=== PATIENT | female | born 1955 | race Caucasian/White ===

== ENCOUNTER → 2016-11-28 | Outpatient (CLI) | payer BC | LOC: BRMIMAGING 13:30 | PROVIDERS: ATTEND Internal Medicine Hematology & Oncology | DX: M25.511 Pain in right shoulder (principal); C50.919 Malignant neoplasm of unspecified site of unspecified female breast | CPT/HCPCS: 73030-PO ==

== ENCOUNTER → 2017-03-20 | Outpatient (CLI) | payer BC ==
[~2017-03-20] MED LIST: GADOBUTROL 10 ML VIAL IVP ONE
== END ==
LOC: FIMAGING 13:42
PROVIDERS: ATTEND Ophthalmology
DX: Z12.89 Encounter for screening for malignant neoplasm of other sites (principal); C44.122 Squamous cell carcinoma of skin of right eyelid, including canthus; D48.5 Neoplasm of uncertain behavior of skin; Z85.3 Personal history of malignant neoplasm of breast
CPT/HCPCS: A9585; J1642

== ENCOUNTER → 2017-04-10 | Outpatient (CLI) | payer BC ==
[~2017-04-10] MED LIST changes: -GADOBUTROL 10 ML VIAL IVP ONE; +LIDOCAINE 1% 300 MG/30 ML SDV ONE
[2017-04-17 14:32] LABS: FIXED IN 10%FORM 6-72HR Yes; FIXED IN 10%FORM W/IN 1 HR Yes
== END ==
LOC: FIMAGING 09:39
PROVIDERS: ATTEND Internal Medicine Hematology & Oncology
PROC: 0KB Muscles, Excision (ICD-10-PCS; principal; 2017-04-10)
DX: C76.0 Malignant neoplasm of head, face and neck (principal); Z85.3 Personal history of malignant neoplasm of breast

== ENCOUNTER 2017-04-23 09:37 | Day surgery (SDC) | payer BC ==
--- NOTE | 2017-04-23 10:26 | CPEKG ---
Heart Rate: 82 RR Interval: 732 P-R Interval: 156 QRSD Interval: 122 QT Interval: 412 QTC Interval: 482 P [place]: 61 QRS [place]: 24 T Wave [place]: 147 EKG Severity - ABNORMAL ECG - EKG Impression: SINUS RHYTHM EKG Impression: LEFT BUNDLE BRANCH BLOCK Electronically Signed By: Pasquale Campbell 23-Apr-2017 11:46:43
--- NOTE | 2017-04-23 10:34 | PDANEPAE ---
ANE History of Present Illness dysphagia p/f EGD ANE Past Medical History - Cardiovascular History Hx Hypertension: Yes Hx Arrhythmias: No Hx Chest Pain: No Hx Coronary Artery / Peripheral Vascular Disease: No Hx CHF / Valvular Disease: No Hx Palpitations: No - Pulmonary History Hx COPD: No Hx Asthma/Reactive Airway Disease: No Hx Recent Upper Respiratory Infection: No Hx Oxygen in Use at Home: No Hx Sleep Apnea: No Pulmonary History Comment: Hx of asthma, hx of recurrent broncitis - Neurologic History Hx Cerebrovascular Accident: No Hx Seizures: No Hx Dementia: No - Endocrine History Hx Diabetes: No Obesity: no - Renal History Hx Renal Disorders: No - Liver History Hx Hepatic Disorders: No - Neurological & Psychiatric Hx Hx Neurological and Psychiatric Disorders: Yes Neurological / Psychiatric History Comment: NUMBNESS TINGLING HANDS - Cancer History Hx Cancer: Yes Cancer History Comment: SQAMOUS CELL CARCINOMA. BREAST CANCER, WITH METS in multiple places - Congenital Disorder History Hx Congenital Disorders: No - GI History Hx Gastrointestinal Disorders: Yes Gastrointestinal History Comment: SWALLOWING DIFFICULTY - Other Health History Other Health History: NONE - Chronic Pain History Chronic Pain: Yes (GENERALIZED, MAINLY NECK) - Surgical History Prior Surgeries: right eye removed ANE Review of Systems Review of systems is: negative Review of Systems: - Exercise capacity Exercise capacity: <4 METS METS (RN): 4 METS ANE Patient History - Allergies Allergies/Adverse Reactions: cimetidine [From Tagamet] Allergy (Verified 04/20/17 19:33) zolpidem [From Ambien] Allergy (Verified 04/20/17 19:33) - Home Medications Home medications: home medication list seen and reviewed Home Medications: Gabapentin 04/20/17 [Last Taken 04/22/17] Levothyroxine 04/20/17 [Last Taken 04/22/17] Propantheline [place] 04/20/17 [Last Taken 04/22/17] AMITRIPTYLINE HCL 75 mg 04/23/17 [Last Taken 04/22/17] Butalbital-Acetaminophn 50-325 04/23/17 [Last Taken 04/22/17] Bystolic 2 mg 04/23/17 [Last Taken 04/22/17] Doxazosin Mesylate 2 mg 04/23/17 [Last Taken 04/22/17] Fentanyl 50 mg SQ 04/23/17 [Last Taken 04/18/17] Omeprazole-Bicarb 20-1,100 Cap BID 04/23/17 [Last Taken 04/22/17] Zyrtec-D Tablet 04/23/17 [Last Taken Unknown] - Anes Hx Anes Hx: no prior problems - Smoking Hx Smoking Status: Never smoked - Family Anes Hx Family Hx Anesthesia Complications: none ANE Labs/Vital Signs - Vital Signs Height: 154.94 cm Weight: 60.328 kg ANE Physical Exam - Airway Neck exam: FROM Mallampati Score: Class 2 Mouth exam: normal dental/mouth exam - Pulmonary Pulmonary: no respiratory distress - Cardiovascular Cardiovascular: regular rate and rhythym - ASA Status ASA Status: III ANE Anesthesia Plan Anesthesia Plan: GA with mask
[2017-04-23] MEDS ORDERED: PROPOFOL 200 MG/20 ML VIAL ONE (10:44)
[2017-04-23] MEDS ORDERED: INDOMETHACIN 50 MG SUPP PR PRN (10:44)
--- NOTE | 2017-04-23 10:44 | PDGENHP ---
History & Physical Chief Complaint: abnormal imaging History of Present Illness: 62 year old female with a hist of b.c. with metastasis, asthma presents for evaluation of abnormal imaging. Pertinent Past, Social, Family History: PMHx; b.c. with mets, asthma Relevant Physical Exam: HEENT: anicteric. No r eye. CV: RRR +s1s2. Lungs: CTAB. Abd: soft, nt, + bs Cardiorespiratory Assessment: ASA 3
[2017-04-23] MEDS ORDERED: NS 500 ML IV SCH (10:45)
[2017-04-23 10:46] VITALS: PULSE 85
[2017-04-23] MEDS ORDERED: LIDOCAINE 2% 5 ML SDV ONE (10:47)
[2017-04-23] MEDS ORDERED: MIDAZOLAM 2 MG/2 ML VIAL ONE (10:50)
[2017-04-23] MEDS ORDERED: ACETAMINOPHEN 500 MG TAB PO PRN (11:09)
[2017-04-23] MEDS ORDERED: OXYCODONE/APAP 5/325 TAB PO PRN (11:09)
[2017-04-23] MEDS ORDERED: ALBUTEROL 3 ML DEYVIAL IH PRN (11:09)
[2017-04-23] MEDS ORDERED: NALOXONE HCL 0.4 MG/ML INJ IVP PRN (11:09)
--- NOTE | 2017-04-23 11:09 | GIREPORT ---
[facility] - Endoscopy Department Patient Name: Desire Monae Procedure Date: 04/23/2017 10:48 AM Patient Type: Outpatient Attending MD/ ER Physician: Eliud Daley MD Procedure: Upper GI endoscopy Indications: Dysphagia, Abnormal CT of the GI tract Patient Profile: 62 year old female with a history of breast cancer with metastasis pres ents for evaluation of dysphagia. Providers: Eliud Daley MD Medicines: Monitored Anesthesia Care Complications: No immediate complications. Estimated blood loss: Minimal. Description of Procedure: After obtaining informed consent, the endoscope was passed under direct vision. Throughout the procedure, the patient's blood pressure, pulse, and oxygen saturations were monitored continuously. The Endoscope was intro duced through the mouth, and advanced to the third part of duodenum. The uppe r GI endoscopy was accomplished without difficulty. The patient tolerated th e procedure well. Findings: The examined esophagus was normal. A few small sessile polyps were found on the greater curvature of the stomach. Patchy mildly erythematous mucosa was found in the gastric body and in the gastric antrum. Biopsies were taken with a cold forceps for histology. The examined duodenum was normal. Estimated Blood Loss: Estimated blood loss was minimal. Post Op Diagnosis: - Normal esophagus. - A few gastric polyps. - Erythematous mucosa in the gastric body and antrum. Biopsied. - Normal examined duodenum. Recommendation: - Discharge patient to home (with escort). - Resume previous diet. - Continue present medications. - Thank alicea for allowing me to participate in the care of your patient. Attending Participation: I personally performed the entire procedure. Eliud Daley MD Eliud Daley MD 04/23/2017 11:09:32 AM This report has been signed electronicallyEliud Daley MD Number of Addenda: 0 Note Initiated On: 04/23/2017 10:48 AM [email or web address]
--- NOTE | 2017-04-23 11:10 | POSTANESTH ---
Post Anesthetic Evaluation Cardiovascular Status: Normal, Stable Respiratory Status: Normal, Stable Level of Consciousness/Mental Status: Can Participate in Eval Pain Control: Adequate, Prn Tx Ordered Nausea/Vomiting Control: Adequate, Prn Tx Ordered Complications Possibly Related to Anesthesia: None Noted
[2017-04-23 11:23] VITALS: RESP 19
[2017-04-23 12:07] VITALS: BP 126/75; TEMP 97.8; O2SAT 91
== END 2017-04-23 12:10 | disposition home or self-care (01) ==
LOC: FSGY 09:37
PROVIDERS: ATTEND Internal Medicine Gastroenterology
PROC: 0DB68ZX Excision of Stomach, Via Natural or Artificial Opening Endoscopic, Diagnostic (ICD-10-PCS; principal; 2017-04-23 11:15)
DX: R13.10 Dysphagia, unspecified (principal); K31.7 Polyp of stomach and duodenum; C50.919 Malignant neoplasm of unspecified site of unspecified female breast
CPT/HCPCS: J1642; J2250; J2704

== ENCOUNTER → 2017-07-27 | Outpatient (CLI) | payer BC ==
[~2017-07-27] MED LIST changes: +IOPAMIDOL (ISOVUE 370) 100 ML BTL IV ONE; -LIDOCAINE 1% 300 MG/30 ML SDV ONE
== END ==
LOC: FIMAGING 15:23
PROVIDERS: ATTEND Internal Medicine Hematology & Oncology
DX: R93.5 Abnormal findings on diagnostic imaging of other abdominal regions, including retroperitoneum (principal); R06.02 Shortness of breath; C50.919 Malignant neoplasm of unspecified site of unspecified female breast
CPT/HCPCS: Q9967

== ENCOUNTER → 2017-10-19 | Outpatient (CLI) | payer BC ==
[~2017-10-19] MED LIST changes: +GADOBUTROL 10 ML VIAL IVP ONE; -IOPAMIDOL (ISOVUE 370) 100 ML BTL IV ONE
== END ==
LOC: FIMAGING 15:53
PROVIDERS: ATTEND Nurse Practitioner
DX: R53.1 Weakness (principal); D46.20 Refractory anemia with excess of blasts, unspecified; C50.912 Malignant neoplasm of unspecified site of left female breast
CPT/HCPCS: A9585; J1642

== ENCOUNTER → 2017-10-23 | Outpatient (CLI) | payer BC | LOC: FIMAGING 12:44 | PROVIDERS: ATTEND Nurse Practitioner | DX: C79.51 Secondary malignant neoplasm of bone (principal); C78.89 Secondary malignant neoplasm of other digestive organs; C50.919 Malignant neoplasm of unspecified site of unspecified female breast; D46.Z Other myelodysplastic syndromes; M51.35 Other intervertebral disc degeneration, thoracolumbar region; M51.36 Other intervertebral disc degeneration, lumbar region; M51.37 Other intervertebral disc degeneration, lumbosacral region | CPT/HCPCS: A9585; J1642 ==

== ENCOUNTER → 2017-11-16 | Outpatient (CLI) | payer BC ==
--- NOTE | 2017-11-21 21:05 | CPEEG ---
[f rep st] ELECTROENCEPHALOGRAM ELECTROENCEPHALOGRAM DATE OF STUDY: 11/16/2017 DATE OF INTERPRETATION: November 21, 2017. INTERPRETATION: This EEG is abnormal due to the following reasons: 1. There was a mild to moderate degree of diffuse nonspecific slowing in the background activity. T hese findings would be consistent with a [id number] diffuse disturbance of cerebral function. 2. There was a moderately severe degree of focal slowing over the left temporal head region. These findings are consistent with a more focal disturbance of cerebral function or lesion in these regions . 3. There were rare, sharply contoured wave forms of uncertain clinical significance over the left te mporal head region. The findings of the study were discussed with the primary neurologic provider, Vinh Montes. REPORT: This EEG contains 7-8 hertz alpha activity of the posterior head regions. There was a mild to moderate degree of diffuse nonspecific slowing composed of theta frequency activity and low amplit ude delta activity. In addition, there was more focal severe slowing over the left temporal head reg ion composed of intermittent, moderate amplitude delta frequency activity. There was no definite abn ormal activation at rest or with photic stimulation or hyperventilation. As the patient became drows y and fell asleep during the study, there were rare, sharply contoured wave forms of uncertain clinic al significance over the left temporal head region. The patient did not have any clinical events dur ing the recording. /[id number]/MODL
== END ==
LOC: FCPNEURO 07:43
PROVIDERS: ATTEND Physician Assistant Medical
DX: R41.89 Other symptoms and signs involving cognitive functions and awareness (principal); C79.31 Secondary malignant neoplasm of brain

== ENCOUNTER → 2018-03-29 | Outpatient (CLI) | payer BC | LOC: BRMIMAGING 13:56 | PROVIDERS: ATTEND Internal Medicine | DX: J18.8 Other pneumonia, unspecified organism (principal); K59.00 Constipation, unspecified | CPT/HCPCS: 71046-PO ==

== ENCOUNTER → 2018-04-04 | Outpatient (CLI) | payer BC | LOC: FIMAGING 11:44 | PROVIDERS: ATTEND Internal Medicine Hematology & Oncology | DX: C79.31 Secondary malignant neoplasm of brain (principal); C79.51 Secondary malignant neoplasm of bone; C50.912 Malignant neoplasm of unspecified site of left female breast | CPT/HCPCS: A9585; J1642 ==

== ENCOUNTER → 2018-04-08 | Day surgery (SDC) | payer BC ==
[~2018-04-08] MED LIST changes: +FLUMAZENIL 0.5 MG/5 ML MDV IVP PRN; -GADOBUTROL 10 ML VIAL IVP ONE; +LIDOCAINE 1% 300 MG/30 ML SDV ONE; +MEPERIDINE 25 MG/ML SYR IVP PRN; +MIDAZOLAM 2 MG/2 ML VIAL IVP PRN; +NALOXONE HCL 0.4 MG/ML INJ IVP PRN; +NS 1,000 ML IV SCH; +fentaNYL 100 MCG/2 ML INJ IVP PRN
[2018-04-08 10:47] VITALS: BP 119/55
[2018-04-08 11:01] LABS: INR 1.01 (0.83-1.16); PROTIME(PATIENT) 13.5 SEC (12.0-15.0)
[2018-04-08 11:03] LABS: PLATELET COUNT 45 10^3/uL (150-400)
== END ==
LOC: FIMAGING 10:04
PROVIDERS: ATTEND Internal Medicine Hematology & Oncology
DX: K76.9 Liver disease, unspecified (principal); C50.919 Malignant neoplasm of unspecified site of unspecified female breast; Z53.9 Procedure and treatment not carried out, unspecified reason
CPT/HCPCS: J1642; J2250; J2310; J3010

== ENCOUNTER 2018-04-11 06:12 | Day surgery (SDC) | payer BC ==
[2018-04-11] MEDS ORDERED: ACETAMINOPHEN 325 MG TAB PO ONE (06:45)
[2018-04-11] MEDS ORDERED: LIDOCAINE 1% 300 MG/30 ML SDV ONE (08:44)
[2018-04-11] MEDS ORDERED: MIDAZOLAM 2 MG/2 ML VIAL ONE (09:43)
[2018-04-11] MEDS ORDERED: NALOXONE HCL 0.4 MG/ML INJ ONE (09:43)
[2018-04-11] MEDS ORDERED: FLUMAZENIL 0.5 MG/5 ML MDV IVP ONE (09:43)
[2018-04-11] MEDS ORDERED: fentaNYL 100 MCG/2 ML INJ ONE (09:43)
--- NOTE | 2018-04-11 10:18 | PDPROPOC ---
Sedation Plan of Care Sedation Plan of Care: vital signs stable, mental status noted, patient educated of risks, benefits, alternatives, patient can tolerate sedation ASA Classification: ASA 2 Planned drugs: fentanyl, midazolam Mallampati Score: Class 2 Mallampati Reference Image: Patient passed 3-3-2 rule?: Yes
--- NOTE | 2018-04-11 10:21 | PDGENHP ---
History & Physical Chief Complaint: FDG AVID BREAST METASTASIS WITH LIVER MASS History of Present Illness: LIVER METS AND OSSEOUS METS Pertinent Past, Social, Family History: HTN, STAGE IV BREAST METS Relevant Physical Exam: SOFT ABDOMEN Cardiorespiratory Assessment: RRR, CLEAR LUNGS
[2018-04-11] MEDS ORDERED: ONDANSETRON 4 MG/2 ML VIAL IVP PRN (11:18)
[2018-04-11] MEDS ORDERED: oxyCODONE IR 5 MG TAB PO PRN (11:18)
--- NOTE | 2018-04-11 11:18 | PDRADPN ---
Radiology Procedure Note Date of Procedure: 04/11/18 Radiologist: Song Connor Anesthesia: IV Sedation, Local (Specify) Pre-op Diagnosis: METASTATIC BREAST CA WITH LIVER MASS Post-op Diagnosis: SAME Indication: METS Procedure: CT AND US GUIDED LIVER BX Finding(s): LIVER MASS RIGHT OF FALCIFORM LIGAMENT Inf/Abcess present in the surg proc area at time of surgery?: No Depth: Organ Space (LIVER MASS) Complications: NONE Specimen(s): 3 LIVER SPECIMENS
== END 2018-04-11 08:00 | disposition home or self-care (01) ==
LOC: FOBOP 06:12
PROVIDERS: ATTEND Internal Medicine Hematology & Oncology
PROC: 0FB03ZX Excision of Liver, Percutaneous Approach, Diagnostic (ICD-10-PCS; principal; 2018-04-11 11:30)
DX: C78.7 Secondary malignant neoplasm of liver and intrahepatic bile duct (principal); C50.919 Malignant neoplasm of unspecified site of unspecified female breast
CPT/HCPCS: 47000; 77012; 99152; 99153; P9035; J1200; J1642; J2250; J2310; J3010; P9100

== ENCOUNTER 2018-09-06 16:24 | Inpatient (IN) | payer BC ==
--- NOTE | 2018-09-06 17:26 | EDPHY ---
H & P Time Seen by Provider: 09/06/18 16:32 HPI/ROS: HPI Shortness of breath. Fatigue. History of metastatic breast cancer stage IV. 63 year old female by private vehicle with her brother. This patient has a history of stage IV breast cancer. She is currently on an oral chemotherapeutic regiment. She is currently being treated by Dr. Blanca Desai. She has a history of chemotherapeutic induce myelodysplastic syndrome. Because of this she has been getting weekly blood draws. She was at the oncology clinic today. She was seen by a physician promotions assistant to Dr. Blanca Desai. She told this person that she has been feeling more short of breath with any exertion as well as talking and been feeling more fatigued lately. It was noted that her room air pulse oximetry was in the upper 80s. She was sent to the emergency department for evaluation and to rule out pulmonary embolism. She has not had chest pain. She is not short of breath at rest. ROS: Constitutional: No fever, no chills. As above. Eyes: No discharge. No changes in vision. ENT: No sore throat. No nasal congestion or rhinorrhea. Respiratory: No cough. As above. Cardiac: No chest pain, no palpitations. Gastrointestinal: No abdominal pain, no vomiting, no diarrhea. Genitourinary: No hematuria. No dysuria or increased frequency with urination. Musculoskeletal: No back pain. No neck pain. No myalgias or arthralgias. Skin: No rashes. Neurological: No headache. No focal weakness or altered sensation. Past medical history: Endometriosis, total hysterectomy, carpal tunnel surgery , cataract surgery, skin cancer right neck. 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 Nonsmoker. No alcohol. Physical Exam: General Appearance: Alert, she appears relaxed. She is not in distress. This patient is responding to questions appropriately and in full sentences. This patient appears well-hydrated and well-nourished. Eyes: Her right eye has been removed. No lid edema, erythema or injection. Respiratory: There are no retractions, decreased breath sounds mid and lower field on the right. No tachypnea. Cardiovascular: Regular rate and rhythm. No murmur appreciated. Gastrointestinal: Abdomen is soft and nontender, no masses, bowel sounds normal. No focal tenderness at McBurney's point. No Flowers sign. Neurological: Motor sensory function is grossly intact. Cranial nerves are normal. Gait is normal. Skin: Warm and dry, no rashes. Musculoskeletal: Neck is supple and nontender. Extremities are symmetrical. No significant lower extremity edema or swelling. All joints range without pain or impingement. Psychiatric: No agitation. No depression. Database: EKG: EKG time is 4:49 p.m.; EKG shows a nonspecific interventricular conduction delay with sinus rhythm and ventricular rate of 82. The SC, QT intervals are within normal limits. There are no ST-T wave changes indicative of ischemic or injury pattern. No evidence of right heart strain. Interpreted by me. Imaging: AP portable chest x-ray: Grossly stable right upper lobe consolidation. Grossly stable bony metastasis. No acute cardiopulmonary disease process noted. Interpreted by me. Bilateral lower extremity Doppler ultrasounds: Negative for DVT. Results were discussed with staff radiologist Dr. Song Connor. CT angiogram of chest renal protective protocol: No evidence of pulmonary embolism. Metastatic disease noted. Results were discussed with staff radiologist Dr. Song Connor. Procedures: Emergency department course: Triage vital signs reviewed. She was 85-80% on room air. On 2 L of nasal cannula oxygen she is 98-100%. She is afebrile. Blood pressure was 98/58 in triage. 6:10 p.m., the patient was re-evaluated, she is resting comfortably at this time. She has been stable on 2 L of nasal cannula oxygen. Results of her emergency department workup discussed with her and her brother. I will consult with radiology regarding a reduced contrast load CT angiogram of her chest to evaluate for pulmonary embolism. Her creatinine is 1.7. Her creatinine is appeared run from 1.7-1.3. 6:15 p.m., spoke with on-call hospitalist Dr. Pranay Azul. Case discussed with her. She accepts this patient for admission. I will follow up with Dr. Pranay Azul regarding imaging. 6:30 p.m., spoke with on-call radiologist Dr. Song Connor. Discussed obtaining CT scan. Their protocols indicate the study can be obtained safely with creatinine of 1.5-2.0 with a low dose contrast load. CT angiogram has been ordered. Patient and her brother were made aware of this. 7:30 p.m., the patient was admitted to the floor on the way to CT scan. CT results were discussed with admitting hospitalist Dr. Pranay Azul. Patient was transferred to the floor in stable condition. Differential Diagnosis: The differential diagnosis on this patient includes but is not limited to pulmonary embolism, hypoxia secondary to metastatic breast cancer. Pneumonia, serious bacterial infection unlikely. This represents a partial list of diagnoses considered. These considerations are based on history, physical exam , past history, reassessment and diagnostic testing. Smoking Status: Never smoked Constitutional: Initial Vital Signs Temperature (C) 36.3 C 09/06/18 16:26 Heart Rate 100 09/06/18 16:26 Respiratory Rate 16 09/06/18 16:26 Blood Pressure 93/58 L 09/06/18 16:26 O2 Sat (%) 88 L 09/06/18 16:26 O2 Delivery Mode Nasal Cannula O2 (L/minute) 2 Allergies/Adverse Reactions: cimetidine [From Tagamet] Allergy (Verified 09/06/18 19:33) Other-Enter Comments zolpidem [From Ambien] Allergy (Verified 09/06/18 19:33) Other-Enter Comments Home Medications: Medication Instructions Recorded Gabapentin 600 mg PO TID #0 04/20/17 Levothyroxine [Synthroid 50 mcg 50 mcg PO DAILY06 #0 04/20/17 (*)] Propantheline [place] 15 mg PO TID 04/20/17 Amitriptyline HCl 75 mg PO HS #0 04/23/17 Butalbital/Acetaminophen 1 each PO DAILY PRN #0 04/23/17 [Acetaminophn-Butalbital 325-50] Doxazosin Mesylate 2 mg PO HS #0 04/23/17 Nebivolol HCl [Bystolic 5 mg (*)] 5 mg PO HS #0 04/23/17 Omeprazole 40 mg PO BID #0 04/23/17 fentaNYL [Duragesic 50 MCG Patch 50 mcg TD Q72H #0 04/23/17 (*)] Hydrocodone/APAP 5/325 [[place] 1 each PO Q6-8PRN PRN 04/08/18 5/325 (*)] Promethazine HCl/Codeine 5 ml PO Q6-8PRN PRN 04/08/18 [Prometh-Codein 6.25-10 mg/5 ml] levETIRAcetam [Keppra 500 mg (*)] 1,000 mg PO BID 04/08/18 Everolimus [AFINITOR] 5 mg PO DAILY 09/06/18 Letrozole [Femara 2.5 mg (*)] 2.5 mg PO DAILY 09/06/18 diphenhydrAMINE [Benadryl 25 MG 25 mg PO DAILY PRN 09/06/18 (*)] Medical Decision Making - Diagnostics Imaging Results: Imaging Impressions Chest X-Ray 09/06/18 16:32 Impression: 1. Grossly stable right upper lobe consolidation, which may be related to scarring/fibrosis. 2. Grossly stable osseous metastases. - Data Points Laboratory Results: Laboratory Results 09/06/18 17:15 09/06/18 17:15 09/06/18 09/06/18 09/06/18 17:20 17:15 17:15 WBC RBC Hgb Hct MCV MCH MCHC RDW Plt Count MPV Neut % (Auto) Lymph % (Auto) [place] % (Auto) Eos % (Auto) Baso % (Auto) Nucleat RBC Rel Count Absolute Neuts (auto) Absolute Lymphs (auto) Absolute Monos (auto) Absolute Eos (auto) Absolute Basos (auto) Absolute Nucleated RBC Immature Gran % Seg Neutrophils % Band Neutrophils % Lymphocytes % Monocytes % Eosinophils % Basophils % Metamyelocytes % Myelocytes % Promyelocytes % Blast Cells % Immature Gran # Absolute Seg Neuts Absolute Band Neuts Absolute Lymphocytes Absolute Monocytes Absolute Eosinophils Absolute Basophils Absolute Metamyelocyte Absolute Myelocytes Absolute Promyelocytes Absolute Plasma Cells Nucleated RBCs Absolute Blast Cells Plasma Cells % Platelet Estimate Tear Drop Cells PT 13.0 SEC SEC (12.0-15.0) INR 1.02 (0.83-1.16) APTT 30.9 SEC SEC (23.0-38.0) D-Dimer 1.65 ug/mLFEU H ug/mLFEU (0.00-0.50) Sodium 134 mEq/L L mEq/L (135-145) Potassium 4.6 mEq/L mEq/L (3.5-5.2) Chloride 100 mEq/L mEq/L (97-110) Carbon Dioxide 20 mEq/l L mEq/l (22-31) Anion Gap 14 mEq/L mEq/L (6-14) BUN 28 mg/dL H mg/dL (7-23) Creatinine 1.7 mg/dL H mg/dL (0.6-1.0) Estimated GFR 30 Glucose 80 mg/dL mg/dL (70-100) Calcium 8.6 mg/dL mg/dL (8.5-10.4) POC Troponin I 0.01 ng/mL ng/mL (0.00-0.08) NT-Pro-B Natriuret Pep 70139 pg/mL H pg/mL (0-125) 09/06/18 17:15 WBC 2.81 10^3/uL L 10^3/uL (3.80-9.50) RBC 3.29 10^6/uL L 10^6/uL (4.18-5.33) Hgb 10.3 g/dL L g/dL (12.6-16.3) Hct 30.2 % L % (38.0-47.0) MCV 91.8 fL fL (81.5-99.8) MCH 31.3 pg pg (27.9-34.1) MCHC 34.1 g/dL g/dL (32.4-36.7) RDW 14.0 % % (11.5-15.2) Plt Count 50 10^3/uL L 10^3/uL (150-400) MPV 10.7 fL fL (8.7-11.7) Neut % (Auto) Not Reported Lymph % (Auto) Not Reported [place] % (Auto) Not Reported Eos % (Auto) Not Reported Baso % (Auto) Not Reported Nucleat RBC Rel Count Not Reported Absolute Neuts (auto) Not Reported Absolute Lymphs (auto) Not Reported Absolute Monos (auto) Not Reported Absolute Eos (auto) Not Reported Absolute Basos (auto) Not Reported Absolute Nucleated RBC Not Reported Immature Gran % Not Reported Seg Neutrophils % 79.8 % % Band Neutrophils % 0.0 % % Lymphocytes % 17.2 % % Monocytes % 3.0 % % Eosinophils % 0.0 % % Basophils % 0.0 % % Metamyelocytes % 0.0 % % Myelocytes % 0.0 % % Promyelocytes % 0.0 % % Blast Cells % 0.0 % % Immature Gran # Not Reported Absolute Seg Neuts 2.24 10^3/uL 10^3/uL (1.70-6.50) Absolute Band Neuts 0.00 10^3/uL 10^3/uL (0.00-0.70) Absolute Lymphocytes 0.48 10^3/uL L 10^3/uL (1.00-3.00) Absolute Monocytes 0.08 10^3/uL L 10^3/uL (0.30-0.80) Absolute Eosinophils 0.00 10^3/uL L 10^3/uL (0.03-0.40) Absolute Basophils 0.00 10^3/uL L 10^3/uL (0.02-0.10) Absolute Metamyelocyte 0.00 10^3/mL 10^3/mL (0.00-0.00) Absolute Myelocytes 0.00 10^3/mL 10^3/mL (0.00-0.00) Absolute Promyelocytes 0.00 10^3/uL 10^3/uL (0.00-0.00) Absolute Plasma Cells 0.00 10^3/uL 10^3/uL (0.00-0.00) Nucleated RBCs 0 /100 WBC /100 WBC (0-0) Absolute Blast Cells 0.00 10^3/uL 10^3/uL (0.00-0.00) Plasma Cells % 0.0 % % Platelet Estimate DECREASED L (ADEQ) Tear Drop Cells 1+ H PT INR APTT D-Dimer Sodium Potassium Chloride Carbon Dioxide Anion Gap BUN Creatinine Estimated GFR Glucose Calcium POC Troponin I NT-Pro-B Natriuret Pep Medications Given: Amitriptyline HCl (Elavil) 75 mg PO HS BRANDON Stop: 03/05/19 20:59 Last Admin: 09/06/18 21:27 Dose: 75 mg Doxazosin Mesylate (Cardura) 2 mg PO HS BRANDON Stop: 03/05/19 20:59 Last Admin: 09/06/18 21:27 Dose: 2 mg Gabapentin (Neurontin) 600 mg PO TID BRANDON Stop: 03/05/19 21:59 Last Admin: 09/06/18 21:26 Dose: 600 mg Levetiracetam (Keppra) 1,000 mg PO BID BRANDON Stop: 03/05/19 20:59 Last Admin: 09/06/18 21:28 Dose: 1,000 mg Miscellaneous Medication (Everolimus [Afinitor]) 5 mg PO DAILY18 BRANDON Stop: 03/05/19 21:29 Last Admin: 09/06/18 21:47 Dose: 5 mg Nebivolol (Bystolic) 5 mg PO HS BRANDON Stop: 03/05/19 20:59 Last Admin: 09/06/18 21:29 Dose: 5 mg Pantoprazole Sodium (Protonix) 40 mg PO BID BRANDON Stop: 03/05/19 20:59 Last Admin: 09/06/18 21:31 Dose: 40 mg Discontinued Medications Levofloxacin/Dextrose (Levaquin 750 Mg (Premix)) 150 mls @ 100 mls/hr IV ONCE ONE PRN Reason: Protocol Stop: 09/06/18 20:50 Last Admin: 09/06/18 20:42 Dose: 150 mls Point of Care Test Results: Chemistry 09/06/18 17:20 POC Troponin I 0.01 ng/mL ng/mL (0.00-0.08) Departure - Departure Disposition: [facility] Acute Clinical Impression: Dyspnea, Hypoxia, Stage IV breast cancer in female, Renal insufficiency, Leukopenia
[2018-09-06 17:30] LABS: PLATELET COUNT 50 10^3/uL (150-400)
[2018-09-06 17:45] LABS: INR 1.02 (0.83-1.16)
[2018-09-06] MEDS ORDERED: IOPAMIDOL (ISOVUE 370) 100 ML BTL IV ONE (18:32)
[2018-09-06] MEDS ORDERED: ONDANSETRON 4 MG/2 ML VIAL IVP PRN (18:58)
[2018-09-06] MEDS ORDERED: ONDANSETRON DISINTEGRATING 4 MG TAB PO PRN (18:58)
[2018-09-06] MEDS ORDERED: ACETAMINOPHEN 325 MG TAB PO PRN (18:58)
[2018-09-06] MEDS ORDERED: NS 1,000 ML IV SCH (19:00)
--- NOTE | 2018-09-06 19:09 | PDGENHP ---
<Maggie Flores - Last Filed: 09/06/18 20:00> History and Physical - Chief Complaint Hypoxia, dyspnea on exertion - History of Present Illness This is a pleasant 63 y/o female w/metastatic stage IV breast cancer presenting from Dr. Blanca oSn's office after expressing to staff members she has felt more short of breath on exertion and more fatigue than normal for the last couple of days. Her oxygen saturation was in the high 80s and she was sent to the ED for further follow up. She tells me she does have oxygen supplementation at home and she has had similar symptoms starting in April. Both episodes were consider "pre-pneumonia" and she was started accordingly w/ antibiotics. She is currently not on any antibiotics now. Endorses subjective fevers however did not check her temperature at home. She denies CP, palpitations, nausea, vomiting, diarrhea, constipation. She is being admitted for further diagnostic work-up, treatment and monitoring. History Information - Allergies/Home Medication List Allergies/Adverse Reactions: cimetidine [From Tagamet] Allergy (Verified 09/06/18 19:33) Other-Enter Comments zolpidem [From Ambien] Allergy (Verified 09/06/18 19:33) Other-Enter Comments Home Medications: Gabapentin 600 mg PO TID #0 04/20/17 [Last Taken 09/06/18 AM] Levothyroxine [Synthroid 50 mcg (*)] 50 mcg PO DAILY06 #0 04/20/17 [Last Taken 09/06/18] Propantheline Lithonia 15 mg PO TID 04/20/17 [Last Taken 09/06/18 AM] Amitriptyline HCl 75 mg PO HS #0 04/23/17 [Last Taken 09/05/18] Butalbital/Acetaminophen [Acetaminophn-Butalbital 325-50] 1 each PO DAILY PRN # 0 04/23/17 [Last Taken 08/30/18] Doxazosin Mesylate 2 mg PO HS #0 04/23/17 [Last Taken 09/05/18] Nebivolol HCl [Bystolic 5 mg (*)] 5 mg PO HS #0 04/23/17 [Last Taken 09/05/18] Omeprazole 40 mg PO BID #0 04/23/17 [Last Taken 09/05/18] fentaNYL [Duragesic 50 MCG Patch (*)] 50 mcg TD Q72H #0 04/23/17 [Last Taken 10/20] Hydrocodone/APAP 5/325 [[place] 5/325 (*)] 1 each PO Q6-8PRN PRN 04/08/18 [Last Taken 09/05/18 PM] Promethazine HCl/Codeine [Prometh-Codein 6.25-10 mg/5 ml] 5 ml PO Q6-8PRN PRN [Last Taken 04/07/18] levETIRAcetam [Keppra 500 mg (*)] 1,000 mg PO BID 04/08/18 [Last Taken 09/06/18 AM] Everolimus [AFINITOR] 5 mg PO DAILY 09/06/18 [Last Taken 09/05/18] Letrozole [Femara 2.5 mg (*)] 2.5 mg PO DAILY 09/06/18 [Last Taken 09/06/18] diphenhydrAMINE [Benadryl 25 MG (*)] 25 mg PO DAILY PRN 09/06/18 [Last Taken Unknown] I have personally reviewed and updated: family history, medical history, social history, surgical history - Past Medical History cancer (Metastatic breast cancer IV; mets to brain, bone and liver, myelodysplastic syndrome; squamous cell carcinoma), GERD, osteoporosis, pneumonia, seizures - Surgical History Reports: cancer surgery (Right eye removal), cholecystectomy, hysterectomy ( Total/BSO), mastectomy (Left breast) - Family History Positive for: cancer (Father w/prostate CA), father with history of CAD younger than 55, hypertension - Social History Smoking Status: Never smoked Alcohol Use: None Drug Use: None Additional social history: Lives w/brother and [id number] Review of Systems Review of Systems: ROS: 10pt was reviewed & negative except for what was stated in HPI & below Physical Exam Physical Exam: Lab data and imaging were reviewed. WBC: 2.81 H/H: 10.3/31.2 Plts: 50 Na: 134 BUN/Cr: 28/1.7 D-dimer: 1.65 INR: 1.02 GFR: 30 BNP: 11,600 Troponin: 0.01 CXR: grossly stable right upper lobe consolidation. Grossly stable bony metastasis. No acute cardiopulmonary disease noted. EKG: SR, RBBB - appears unchanged from EKG records in 2017 Temp Pulse Resp BP Pulse Ox 36.3 C 83 20 91/50 L 100 09/06/18 16:26 09/06/18 19:00 09/06/18 19:00 09/06/18 19:00 09/06/18 19:00 O2 (L/minute) 2 Constitutional: chronically ill appearing Eyes: anicteric sclera, EOMI, other (Right eye has been removed d/t cancer ) Ears, Nose, Mouth, Throat: moist mucous membranes, hearing normal, ears appear normal, no oral mucosal ulcers Cardiovascular: regular rate and rhythym, no murmur, rub, or gallop, No edema Peripheral Pulses: 2+: dorsalis-pedis (R), dorsalis-pedis (L) Respiratory: reduced air movement Gastrointestinal: normoactive bowel sounds, soft, non-tender abdomen, no palpable masses Genitourinary: no bladder fullness, no bladder tenderness Skin: warm, normal color, no rashes or abrasions, no fluctuance, no induration, No mottled Musculoskeletal: full muscle strength, no muscle tenderness, normal joint ROM, no joint effusions Neurologic: AAOx3, sensation intact bilaterally, CN II-XII Intact Psychiatric: interacting appropriately, not anxious, not encephalopathic, thought process linear Lymph, Heme, Immunologic: no cervical LAD, no supraclavicular LAD Lab Data & Imaging Review 09/06/18 17:15 09/06/18 17:15 WBC 2.81 10^3/uL (3.80-9.50) L 09/06/18 17:15 RBC 3.29 10^6/uL (4.18-5.33) L 09/06/18 17:15 Hgb 10.3 g/dL (12.6-16.3) L 09/06/18 17:15 Hct 30.2 % (38.0-47.0) L 09/06/18 17:15 MCV 91.8 fL (81.5-99.8) 09/06/18 17:15 MCH 31.3 pg (27.9-34.1) 09/06/18 17:15 MCHC 34.1 g/dL (32.4-36.7) 09/06/18 17:15 RDW 14.0 % (11.5-15.2) 09/06/18 17:15 Plt Count 50 10^3/uL (150-400) L 09/06/18 17:15 MPV 10.7 fL (8.7-11.7) 09/06/18 17:15 Neut % (Auto) Not Reported 09/06/18 17:15 Lymph % (Auto) Not Reported 09/06/18 17:15 [place] % (Auto) Not Reported 09/06/18 17:15 Eos % (Auto) Not Reported 09/06/18 17:15 Baso % (Auto) Not Reported 09/06/18 17:15 Nucleat RBC Rel Count Not Reported 09/06/18 17:15 Absolute Neuts (auto) Not Reported 09/06/18 17:15 Absolute Lymphs (auto) Not Reported 09/06/18 17:15 Absolute Monos (auto) Not Reported 09/06/18 17:15 Absolute Eos (auto) Not Reported 09/06/18 17:15 Absolute Basos (auto) Not Reported 09/06/18 17:15 Absolute Nucleated RBC Not Reported 09/06/18 17:15 Immature Gran % Not Reported 09/06/18 17:15 Seg Neutrophils % 79.8 % 09/06/18 17:15 Band Neutrophils % 0.0 % 09/06/18 17:15 Lymphocytes % 17.2 % 09/06/18 17:15 Monocytes % 3.0 % 09/06/18 17:15 Eosinophils % 0.0 % 09/06/18 17:15 Basophils % 0.0 % 09/06/18 17:15 Metamyelocytes % 0.0 % 09/06/18 17:15 Myelocytes % 0.0 % 09/06/18 17:15 Promyelocytes % 0.0 % 09/06/18 17:15 Blast Cells % 0.0 % 09/06/18 17:15 Immature Gran # Not Reported 09/06/18 17:15 Absolute Seg Neuts 2.24 10^3/uL (1.70-6.50) 09/06/18 17:15 Absolute Band Neuts 0.00 10^3/uL (0.00-0.70) 09/06/18 17:15 Absolute Lymphocytes 0.48 10^3/uL (1.00-3.00) L 09/06/18 17:15 Absolute Monocytes 0.08 10^3/uL (0.30-0.80) L 09/06/18 17:15 Absolute Eosinophils 0.00 10^3/uL (0.03-0.40) L 09/06/18 17:15 Absolute Basophils 0.00 10^3/uL (0.02-0.10) L 09/06/18 17:15 Absolute Metamyelocyte 0.00 10^3/mL (0.00-0.00) 09/06/18 17:15 Absolute Myelocytes 0.00 10^3/mL (0.00-0.00) 09/06/18 17:15 Absolute Promyelocytes 0.00 10^3/uL (0.00-0.00) 09/06/18 17:15 Absolute Plasma Cells 0.00 10^3/uL (0.00-0.00) 09/06/18 17:15 Nucleated RBCs 0 /100 WBC (0-0) 09/06/18 17:15 Absolute Blast Cells 0.00 10^3/uL (0.00-0.00) 09/06/18 17:15 Plasma Cells % 0.0 % 09/06/18 17:15 Platelet Estimate DECREASED (ADEQ) L 09/06/18 17:15 Tear Drop Cells 1+ H 09/06/18 17:15 PT 13.0 SEC (12.0-15.0) 09/06/18 17:15 INR 1.02 (0.83-1.16) 09/06/18 17:15 APTT 30.9 SEC (23.0-38.0) 09/06/18 17:15 D-Dimer 1.65 ug/mLFEU (0.00-0.50) H 09/06/18 17:15 Sodium 134 mEq/L (135-145) L 09/06/18 17:15 Potassium 4.6 mEq/L (3.5-5.2) 09/06/18 17:15 Chloride 100 mEq/L (97-110) 09/06/18 17:15 Carbon Dioxide 20 mEq/l (22-31) L 09/06/18 17:15 Anion Gap 14 mEq/L (6-14) 09/06/18 17:15 BUN 28 mg/dL (7-23) H 09/06/18 17:15 Creatinine 1.7 mg/dL (0.6-1.0) H 09/06/18 17:15 Estimated GFR 30 09/06/18 17:15 Glucose 80 mg/dL (70-100) 09/06/18 17:15 Calcium 8.6 mg/dL (8.5-10.4) 09/06/18 17:15 POC Troponin I 0.01 ng/mL (0.00-0.08) 09/06/18 17:20 NT-Pro-B Natriuret Pep 36739 pg/mL (0-125) H 09/06/18 17:15 Assessment & Plan Plan: This is a 63 y/o female presenting w/a few days of hypoxemia and AGARWAL. Her current vital signs are: BP 93/58, HR 100, Resp 16, Temp 36.3c, 88% RA -->98% 2L NC. #Acute hypoxemic respiratory failure #Pancytopenia #Renal insufficiency #Stage IV breast cancer in female Plan: -Doppler and chest CTA pending to r/o PE, DVT -Cycle trop Q6H x 1 -One time dose of Levaquin IV for possible PNA -IVF x 2 bags for renal insufficiency -PT/OT to evaluate and treat -Oncology consulted and aware of pt's admittance in house -Cont home medications -Elevated BNP however I do not believe she has congestive heart failure. She appears hypovolemic w/ hypotension, skin tenting and poor PO intake. Diet: Regular Code: Full VTE ppx: SCDs Dispo: Admit to obs <Pranay Azul - Last Filed: 09/06/18 20:21> History and Physical - History of Present Illness Review of Systems Review of Systems: Physical Exam Physical Exam: Temp Pulse Resp BP Pulse Ox 36.3 C 79 18 112/69 100 09/06/18 16:26 09/06/18 19:45 09/06/18 19:45 09/06/18 19:45 09/06/18 19:45 O2 (L/minute) 2 Lab Data & Imaging Review 09/06/18 17:15 09/06/18 17:15 WBC 2.81 10^3/uL (3.80-9.50) L 09/06/18 17:15 RBC 3.29 10^6/uL (4.18-5.33) L 09/06/18 17:15 Hgb 10.3 g/dL (12.6-16.3) L 09/06/18 17:15 Hct 30.2 % (38.0-47.0) L 09/06/18 17:15 MCV 91.8 fL (81.5-99.8) 09/06/18 17:15 MCH 31.3 pg (27.9-34.1) 09/06/18 17:15 MCHC 34.1 g/dL (32.4-36.7) 09/06/18 17:15 RDW 14.0 % (11.5-15.2) 09/06/18 17:15 Plt Count 50 10^3/uL (150-400) L 09/06/18 17:15 MPV 10.7 fL (8.7-11.7) 09/06/18 17:15 Neut % (Auto) Not Reported 09/06/18 17:15 Lymph % (Auto) Not Reported 09/06/18 17:15 [place] % (Auto) Not Reported 09/06/18 17:15 Eos % (Auto) Not Reported 09/06/18 17:15 Baso % (Auto) Not Reported 09/06/18 17:15 Nucleat RBC Rel Count Not Reported 09/06/18 17:15 Absolute Neuts (auto) Not Reported 09/06/18 17:15 Absolute Lymphs (auto) Not Reported 09/06/18 17:15 Absolute Monos (auto) Not Reported 09/06/18 17:15 Absolute Eos (auto) Not Reported 09/06/18 17:15 Absolute Basos (auto) Not Reported 09/06/18 17:15 Absolute Nucleated RBC Not Reported 09/06/18 17:15 Immature Gran % Not Reported 09/06/18 17:15 Seg Neutrophils % 79.8 % 09/06/18 17:15 Band Neutrophils % 0.0 % 09/06/18 17:15 Lymphocytes % 17.2 % 09/06/18 17:15 Monocytes % 3.0 % 09/06/18 17:15 Eosinophils % 0.0 % 09/06/18 17:15 Basophils % 0.0 % 09/06/18 17:15 Metamyelocytes % 0.0 % 09/06/18 17:15 Myelocytes % 0.0 % 09/06/18 17:15 Promyelocytes % 0.0 % 09/06/18 17:15 Blast Cells % 0.0 % 09/06/18 17:15 Immature Gran # Not Reported 09/06/18 17:15 Absolute Seg Neuts 2.24 10^3/uL (1.70-6.50) 09/06/18 17:15 Absolute Band Neuts 0.00 10^3/uL (0.00-0.70) 09/06/18 17:15 Absolute Lymphocytes 0.48 10^3/uL (1.00-3.00) L 09/06/18 17:15 Absolute Monocytes 0.08 10^3/uL (0.30-0.80) L 09/06/18 17:15 Absolute Eosinophils 0.00 10^3/uL (0.03-0.40) L 09/06/18 17:15 Absolute Basophils 0.00 10^3/uL (0.02-0.10) L 09/06/18 17:15 Absolute Metamyelocyte 0.00 10^3/mL (0.00-0.00) 09/06/18 17:15 Absolute Myelocytes 0.00 10^3/mL (0.00-0.00) 09/06/18 17:15 Absolute Promyelocytes 0.00 10^3/uL (0.00-0.00) 09/06/18 17:15 Absolute Plasma Cells 0.00 10^3/uL (0.00-0.00) 09/06/18 17:15 Nucleated RBCs 0 /100 WBC (0-0) 09/06/18 17:15 Absolute Blast Cells 0.00 10^3/uL (0.00-0.00) 09/06/18 17:15 Plasma Cells % 0.0 % 09/06/18 17:15 Platelet Estimate DECREASED (ADEQ) L 09/06/18 17:15 Tear Drop Cells 1+ H 09/06/18 17:15 PT 13.0 SEC (12.0-15.0) 09/06/18 17:15 INR 1.02 (0.83-1.16) 09/06/18 17:15 APTT 30.9 SEC (23.0-38.0) 09/06/18 17:15 D-Dimer 1.65 ug/mLFEU (0.00-0.50) H 09/06/18 17:15 Sodium 134 mEq/L (135-145) L 09/06/18 17:15 Potassium 4.6 mEq/L (3.5-5.2) 09/06/18 17:15 Chloride 100 mEq/L (97-110) 09/06/18 17:15 Carbon Dioxide 20 mEq/l (22-31) L 09/06/18 17:15 Anion Gap 14 mEq/L (6-14) 09/06/18 17:15 BUN 28 mg/dL (7-23) H 09/06/18 17:15 Creatinine 1.7 mg/dL (0.6-1.0) H 09/06/18 17:15 Estimated GFR 30 09/06/18 17:15 Glucose 80 mg/dL (70-100) 09/06/18 17:15 Calcium 8.6 mg/dL (8.5-10.4) 09/06/18 17:15 POC Troponin I 0.01 ng/mL (0.00-0.08) 09/06/18 17:20 NT-Pro-B Natriuret Pep 00192 pg/mL (0-125) H 09/06/18 17:15 Assessment & Plan Assessment: Dyspnea (Acute) Hypoxia (Acute) Stage IV breast cancer in female (Acute) Renal insufficiency (Acute) Leukopenia (Acute) Plan: Patient seen and evaluated independently and care plan reviewed with GABRIELA Flores, agree with her assessment and plan as outlined above. Please see separate documentation for further details.
[2018-09-06] MEDS ORDERED: diphenhydrAMINE 25 MG CAP PO PRN (19:54)
[2018-09-06] MEDS ORDERED: ACETAMINOPHEN PO PRN (19:54)
[2018-09-06] MEDS ORDERED: HYDROCODONE/APAP 5/325 TAB PO PRN (19:54)
[2018-09-06] MEDS ORDERED: BUTALBITAL PO PRN (19:54)
[2018-09-06] MEDS ORDERED: CODEINE/PROMETHAZINE 5 ML UDL PO PRN (20:15)
--- NOTE | 2018-09-06 20:21 | HOSPPROG ---
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 CXR without new infiltrate (RUL consolidation has been present previously and likely scarring/fibrosis), CTA without PE although there are pulmonary nodules and likely pneumonitis noted on CTA. She is currently 100%on 2L, will try to titrate off of oxygen, likely due to pneumonitis as well as hx of ILD. Given 1 dose of levofloxacin to cover possible atypical pna difficult to completely rule out on imaging given chronic underlying issues as noted. # metastatic breast cancer: with diffuse osseous mets, leptomeningeal spread. S/ p chemo and radiation, followed by Dr. Son. 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 Old records reviewed and summarized as above. Care plan reviewed with GABRIELA Flores , please see her separate documentation for further details. Objective: Vital Signs Temp Pulse Resp BP Pulse Ox 36.3 C 79 18 112/69 100 09/06/18 16:26 09/06/18 19:45 09/06/18 19:45 09/06/18 19:45 09/06/18 19:45 PT 13.0 SEC (12.0-15.0) 09/06/18 17:15 INR 1.02 (0.83-1.16) 09/06/18 17:15 ICD10 Worksheet Patient Problems: Problems Problem Status Onset Dyspnea Acute Hypoxia Acute Stage IV breast cancer in female Acute Renal insufficiency Acute Leukopenia Acute
[2018-09-06] MEDS ORDERED: DOXAZOSIN MESYLATE 4 MG TAB PO SCH (21:00)
[2018-09-06] MEDS: GABAPENTIN 300 MG CAP PO SCH (21:26)
[2018-09-06] MEDS: AMITRIPTYLINE HCL 50 MG TAB PO SCH (21:27)
[2018-09-06] MEDS: levETIRAcetam 500 MG TAB PO SCH (21:28)
[2018-09-06] MEDS: NEBIVOLOL HCL 5 MG TAB PO SCH (21:29)
[2018-09-06] MEDS: PANTOPRAZOLE SODIUM 40 MG TAB PO SCH (21:31)
[2018-09-06] MEDS: Everolimus [Afinitor] 5 MG PO SCH (21:47)
--- NOTE | 2018-09-06 22:45 | CPEKG ---
Test Reason : OPEN Blood Pressure : / mmHG Vent. Rate : 082 BPM Atrial Rate : 082 BPM P-R Int : 149 ms QRS Dur : 129 ms QT Int : 396 ms P-R-T Axes : 054 -03 102 degrees QTc Int : 463 ms Sinus rhythm Left bundle branch block Confirmed by Dewey Chin ([id number]) on 09/06/2018 10:45:17 PM Referred By: Dewey Chin Confirmed By:Dewey Chin
[2018-09-06] MEDS: PROPANTHELINE BROMIDE 15 MG PO SCH (23:20)
[2018-09-07] MEDS: LEVOTHYROXINE 50 MCG TAB PO SCH (05:15)
[2018-09-07 05:30] LABS: PLATELET COUNT 38 10^3/uL (150-400)
[2018-09-07] MEDS: GABAPENTIN 300 MG CAP PO SCH ×3 (09:39→20:07)
[2018-09-07] MEDS: LETROZOLE 2.5 MG TAB PO SCH (09:39)
[2018-09-07] MEDS: levETIRAcetam 500 MG TAB PO SCH ×2 (09:39→20:06)
[2018-09-07] MEDS: PANTOPRAZOLE SODIUM 40 MG TAB PO SCH ×2 (09:39→20:09)
[2018-09-07] MEDS: PROPANTHELINE BROMIDE 15 MG PO SCH ×3 (09:39→20:10)
--- NOTE | 2018-09-07 10:07 | GCON ---
[f rep st] CONSULTATION NEW PATIENT CONSULTATION. PRIMARY ONCOLOGIST: Dr. Blanca Son. REQUESTING PHYSICIAN: Dr. Pranay Azul. REASON FOR CONSULTATION: Patient known to Dr. Son with stage IV breast cancer with new dyspnea on exertion and mild hypoxia. 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 She was in [place] at the time. The tumor was grade 2, ER/W[place] positiv e and HER2 negative. She received 2 cycles of neoadjuvant Adriamycin and Cytoxan and had a prolonged pancytopenia. Initial bone marrow showed aplasia, but ultimately it was felt to be best characteriz ed by hypoplastic myelodysplasia. She was initially transfusion dependent and then treated with a co urse of ATG and cyclosporine. With regard to myelodysplasia, she has had a normal white blood cell c ount and hemoglobin since, but continues to run moderate thrombocytopenia with platelet counts rangin g from 60-90,000. She completed 5 and a half years of adjuvant letrozole for breast cancer and did n ot receive PMRT. 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 She was found t o have local recurrence of the sebaceous carcinoma in March 2012. Brain MRI in 2016 showed what wa s described as leptomeningeal and calvarial metastasis. There was some indeterminate enhancement fany p to the skin and inferior right orbit. For this reason, she then had a PET-CT. Pet-CT showed exten sive osseous erosion involving calvarium with subtle uptake along right anterior orbit and left sami bular body. She had soft tissue metastatic nodularity along posterior margin of the right parotid as well as posterior right cervical lymph node. There was dominant PET-avid mass at the base of the ri ght neck measuring 2.3 x 2.8, also a soft tissue uptake posterior to the right clavicle and right ant erior superior mediastinum just anterior to the aortic arch. No evidence of liver or lung metastasis . There were multiple other bony metastases involving thoracic and lumbar vertebra, right posterior 5th rib, posterior central left sacrum, and right iliac bone. She had a neck MRI in April of that year showing right-sided intrahilar soft tissue mass at 4.3 cm . In addition, right-sided supraclavicular and cervical lymph node metastasis. Other areas were men tioned. It was felt there was likely subdural invasion related to bony metastatic disease in right h emisphere. Underwent a biopsy of supraclavicular soft tissue mass 04/10/2017, which identified a met astatic adenocarcinoma that was felt to be compatible with breast cancer. There was no suggestion of sebaceous differentiation. The tumor stained positive for ER and [place] and HER2 was negative with an I HC score of 1+. Due to multiple comorbidities, she was started on Faslodex in May of 2017, and palbociclib was a dded in September of the following year at a reduced dose of 75 mg due to underlying myelodysplastic diso rder and chronic thrombocytopenia. In addition, Zometa has been a consideration, but she has had den shane issues that needed to be clarified. More recently, due to progression, the patient was started on Afinitor as well as letrozole. She was seen in the clinic yesterday, 09/06/2018, for an office visit. She has been on the new medications for about 2 weeks. I will note that her PET-CT that was done on 08/22/2018, showed progressive metas tatic disease evidenced by new metabolically active right mid lung pulmonary nodules, at least 10 new metabolically active liver lesions, and new metabolically active lesions throughout spine and pelvis . Yesterday, she was noted to have an oxygen sat of 86%. She does wear oxygen at home, but only interm ittently, and was complaining of more dyspnea on exertion. In the ED, she ultimately had a CTA to rule out PE, which was negative. Her pulmonary osseous mets a ppeared similar to the PET scan that was performed August 22, 2018. These films were reviewed by me cassandra guajardo. No pleural effusion or pneumothorax. Laboratory analysis yesterday showed a hemoglobin of 10.3, hematocrit of 30, white blood cell count 2 .8, and platelet count of 50,000 which is close to her baseline. She did have a BNP of over 11,000. Her troponin was less than 0.01. The patient denies any history of cardiovascular disease. She has never had an echocardiogram. On review of systems, Desire feels back to her baseline this morning, she is in no acute distress. D enies nausea, vomiting, fevers or productive cough. She did receive a dose of Levaquin yesterday, bu t currently is afebrile. PAST MEDICAL HISTORY: 1. Metastatic breast cancer; treatment as listed above most recently on Afinitor and letrozole. Zom eta has been on hold. Mets to brain, bone, and liver. 2. Myelodysplastic syndrome. 3. Sebaceous carcinoma of right eyelid. 4. GERD. 5. Osteoporosis. 6. Pneumonia. 7. Seizures. SURGICAL HISTORY: 1. Cancer surgery, right eye enucleation. 2. Cholecystectomy. 3. Hysterectomy. 4. Left mastectomy. FAMILY HISTORY: Positive for father with prostate cancer. SOCIAL HISTORY: Never smoked. No alcohol use. Lives with brother and [id number]. PHYSICAL EXAM: Currently, blood pressure 92/46, pulse 65, respiration rate 16, saturating 98% on 2 L . Temp is 36.9. In general, she is a 63-year-old woman, looks her stated age, not in acute distress . HEENT: Enucleation lesion of right eye. Oropharynx is clear. Neck: Has a slightly distended ri ght jugular vein. Heart regular rate and rhythm. Lungs: She has very mild inspiratory crackles, ri ght upper lobe and left upper lobe, otherwise has normal breath sounds throughout. No rhonchi. Abdo men: Soft, nontender. No enlarged liver. Lower extremity: No significant edema. Skin: No rash. Neurologic is nonfocal. LABS: Current CBC today shows white blood cell count of 2, hemoglobin 8.6, hematocrit 25.8, platelet count of 38,000. Creatinine 1.5. ASSESSMENT AND PLAN: A 63-year-old woman with the above-mentioned past medical history, namely metas tatic ER positive breast cancer, most recently on Afinitor and letrozole, admitted with mild hypoxia and dyspnea on exertion. 1. Dyspnea on exertion. CTA without pulmonary embolus. She has stable pulmonary nodules consistent with metastatic disease. There was a suggestion of early pneumonitis. I think this is too early fo r pneumonitis to be related to Afinitor and probably related to more recent treatments. She is not r unning fevers and dyspnea on exertion has improved with continuous oxygen alone only on 2 L. From a pulmonary standpoint, I feel that her lungs are very stable. I did note anemia with her hydration an d I asked her about underlying cardiovascular disease, which she denies. I think given a BNP greater than 11,000, it is worth checking an echocardiogram. If this is relatively normal, I think she can be discharged on continuous oxygen for followup. I do not see evidence of an underlying pneumonia an d no evidence of lymphangitic spread of breast cancer. 2. Metastatic breast cancer with diffuse osseous metastases, liver metastases, lung metastases on Af initor and letrozole, followed by Dr. Son. 3. Pancytopenia, underlying hypoplastic myelodysplastic syndrome. Consider transfusion if congestiv e heart failure abnormal. Otherwise, this is patient's baseline. 4. Underlying kidney disease. Creatinine is stable today, is on IV fluids. 5. History of seizure disorder. 6. History of sebaceous carcinoma of right eye. 7. Elevated BNP, per above. If patient is not discharged today, we will continue to follow inpatient. More than 45 minutes spent with the patient, more than 50% of time counseling, coordinating care, and discussing with Dr. Ashton. /[id number]/MODL
--- NOTE | 2018-09-07 12:06 | PDHOMEO2F ---
Home Oxygen Face to Face Home Orders: I certify that a physician or a nurse practitioner or physician's fast food assistant restaurant manager has had a [id number] encounter with this patient on the date of this order due to the diagnosis listed, which relates to the primary reason the patient requires home oxygen. Alternative treatments have been tried, or considered, and deemed ineffective. It is anticipated that supplemental oxygen will result in improvement with treatment. Home oxygen qualifying diagnosis: lung cancer, interstitial lung disease, pneumonitis Home oxygen secondary diagnosis: chronic hypoxemic respiratory failure SpO2 on room air (%): 70 Frequency of home oxygen needed: with activity, continuous, during sleep Home oxygen liters per minute: 2 Home oxygen delivery device: nasal cannula Concentrator: Yes E-tanks for mobility and back up: Yes If ordering portable O2, is the patient mobile in the home?: Yes I certify that, based on these findings, the home oxygen is medically necessary for this patient for the following length of time. Length of time home oxygen needed: 99 years (patient has intermittent O2 at home already)
--- NOTE | 2018-09-07 14:56 | ECHO ---
[email or web address] [address] Main: [phone] Echocardiography Examination Transthoracic Name: STELLA VASQUEZ MR#: [id number] Study Date: 09/07/2018 Study Time: 01:04 PM Date of : 1955 Age: 63 year(s) Height: 157.5 cm (62 in.) Weight: 52.16 kg (115 lb.) BSA: 1.51 m2 Gender: Female Examination: Echo Contrast: Image Quality: Fair Rhythm: Normal sinus rhythm Heart Rate: 84 bpm BP: 92 mmHg/46 mmHg Indication: Stage IV Breast CA, Hypoxia Procedure Staff Referring Physician: Honing Job Setter: Bert Villasenor RDCS Reading Physician: Arthur Juares MD Requesting Provider: Indication: Stage IV Breast CA, Hypoxia Measurements Chambers AV/MV Label Value Normal Value Label Value Normal Value LVOT Vmax 1.15 m/s (0.7m/s - 1.1m/s) AR (ERO) 0.15 cm2 LVOTd 1.6 cm (1.8cm - 2cm) AR PHT 0.55 s LVOT PGmax 5 mmHg AR PHT 545 ms LVDd, 2D 3.1 cm (3.9cm - 5.3cm) AR PISA Radius 0.4 cm LVDs, 2D 1.8 cm (2.1cm - 4cm) AR Reg. Fraction 35 % IVSd, 2D 0.7 cm (0.6cm - 1.1cm) AR Reg. Volume 15 ml LVPWd, 2D 0.8 cm AR Vena contracta 0.2 cm LVEF, 2D 72 % (54% - 74%) AR Vmax 2.59 m/s LVOT PGmean 2 mmHg AR VTI 103 cm LVOT Vmean 0.69 m/s AV PGmax 8 mmHg Additional Vessels AV PGmean 4 mmHg Label Value Normal Value AV Vmax 1.45 m/s AoRoot, MM 2.2 cm (2.2cm - 3.7cm) KAMLESH (Vmax) 1.6 cm2 KAMLESH (VTI) 1.6 cm2 MV E Vmax 0.84 m/s MV A Vmax 1.04 m/s MV E/A 0.81 MV E/E' lateral 15.5 MV E/E' septal 20.6 (0.45 - 1.25) MV E' septal 0.04 m/s Patient: STELLA VASQUEZ Study Date: 09/07/2018 Page 1 of 3 01:04 PM MV VTI 28.4 cm MVA D (continuity eq.) 1.5 cm2 MV PGmax 5 mmHg MV PGmean 2 mmHg MV Kirsty 2.5 cm MR Vena Contracta 0.4 cm MR Reg. Volume 4 ml MR Reg. Fraction 3 % MR Vmax 4.42 m/s MR VTI 105 cm MR (ERO) 0.04 cm2 MV E' lateral 0.05 m/s MR PISA Radius 0.3 cm MV E/E' mean 18.67 MR PISA Alias V. 30.8 cm/s MV E' mean 0.04 m/s TV/PV Label Value Normal Value RA Pressure 5 mmHg RVSP 37 mmHg TR Pmax 32 mmHg TR Vmax 2.84 m/s Conclusions Left Ventricle: EF range is estimated at 70 % - 75 %. Grade II Diastolic Dysfunction. Right Atrium: A PICC line is present in the right atrium. Mitral Valve: Mild mitral regurgitation. Aortic Valve: Mild aortic regurgitation is present. Pericardium: No pericardial effusion. Findings Left Ventricle: There is poor acoustic windows available.. Left ventricle is normal in size. EF range is estimated at 70 % - 75 %. Left ventricle wall thickness is normal. There are no regional wall motion abnormalities. Grade II Diastolic Dysfunction. Right Ventricle: Normal size right ventricle. Right ventricular systolic function is normal. Left Atrium: The left atrium is normal in size. Right Atrium: The right atrium is normal in size. A PICC line is present in the right atrium. Patient: STELLA VASQUEZ Study Date: 09/07/2018 Page 2 of 3 01:04 PM Mitral Valve: Mitral valve appears structurally normal. Mild mitral regurgitation. Aortic Valve: Aortic leaflets are structurally normal. Mild aortic regurgitation is present. There is no aortic stenosis. Aortic leaflets exhibit mild calcification. Aortic Valve Measurements AR PHT is 545 ms. Tricuspid Valve: Trivial tricuspid regurgitation. Right Ventricular systolic pressure is measured at 37 mmHg. Pulmonary artery pressure normal. Aorta: The aorta is normal. The aortic root size in M-mode measures 2.2 cm. Aorta Measurements AoRoot, MM is 2.2 cm. Great Vessels: The great vessels are poorly visualized. Pericardium: No pericardial effusion. Exam Details Procedure Ordered: Echo Procedure Status: Routine study Image Quality: Fair Facility Location: Cardiac Echo 1 (No Signature Object) Patient: STELLA VASQUEZ Study Date: 09/07/2018 Page 3 of 3 01:04 PM [id number]
--- NOTE | 2018-09-07 15:19 | ASMTCMCOM ---
CM Note CM Note Notes: CM reviewed chart for d/c planning. Pt is a 63 y/o female who presented to the ED with dyspnea on exertion and mild hypoxia. Pt has a medical hx of metastatic breast cancer with extensive osseous mets, myelodysplastic syndrome and sebaceous carcinoma of the right eyelid. She presently lives with her brother and fgjnhy-on-cav. PT has been ordered and has no recommendations for further treatment, but will continue to assess. CM will follow. D/C Plan: TBD Date Signed: 09/07/2018 03:19 PM Electronically Signed By:Verna Hull
[2018-09-07] MEDS ORDERED: FUROSEMIDE 20 MG/2 ML VIAL IVP ONE (17:14)
--- NOTE | 2018-09-07 17:18 | HOSPPROG ---
Hospitalist Progress Note Assessment/Plan: The patient is a 63-year-old female with PMH stage IV breast cancer and sebaceous carcinoma of right eyelid who was admitted for acute respiratory failure. ASSESSMENT/PLAN: Acute hypoxemic respiratory failure, on O2 Acute diastolic CHF exacerbation Stage IV breast cancer with metastases to lungs, liver, bone JOSE GUADALUPE on CKD St 3 H/o sebaceous carcinoma R eye, s/p R eye enucleation Partial blindness Seizure disorder Hypotension, 2/2 BP med AE -DC IVF, start IV Lasix, fluid restrict, sodium restrict -Check AM labs. -O2, SVNs prn -PT/OT -Discussed w/ Dr. Fields - CT now compared to PET-CT shows stable masses. -Hold doxazosin. Added holding parameter to Bystolic. -Discussed results of echo w/ patient VTE prophylaxis: Lovenox Code Status: DNR Status: Changed inpatient for > 2 midnight stay for diuresis, monitoring of I/ O and electrolytes, and supplemental O2. Disposition: Med surg with discharge anticipated tomorrow ____ SUBJECTIVE: Pt continues to feel short of breath, requiring O2. OBJECTIVE: Physical Exam: General: The patient is a female who is alert and in no acute distress. HEENT: normocephalic, right eye enucleation noted, conjunctivae clear. Mucous membranes moist. Neck: trachea midline, no visible masses. CV: +S1/S2, RRR, no MRG. Resp: unlabored, CTAB +bibasilar rales. Abd: soft and nondistended. Musculoskeletal: Normal muscle tone/bulk. Neuro: cranial nerves II - XII grossly intact. Intact gross motor and sensory function. Psych: Appropriate mood and appropriate affect. Skin: Mild pallor. No petechiae. Heme/lymph: No peripheral edema at bilateral lower extremities. Labs/Imaging/Other Tests: Personally reviewed/interpreted. CTA chest - mild ground glass opacities suggestive of pulm edema/inflammation. CXR - mild infiltrates noted near masses. Objective: Vital Signs Temp Pulse Resp BP Pulse Ox 37.0 C 81 16 90/46 L 94 09/07/18 15:19 09/07/18 15:19 09/07/18 15:19 09/07/18 15:19 09/07/18 15:19 Microbiology 09/06/18 23:13 Respiratory Panel (PCR) - Final Nasal, Sinus - Eswab No Organism Detected By Pcr Laboratory Results 09/07/18 04:58 09/07/18 04:58 09/06/18 09/07/18 09/08/18 05:59 05:59 05:59 Intake Total 500 500 Output Total 300 Balance 200 500 PT 13.0 SEC (12.0-15.0) 09/06/18 17:15 INR 1.02 (0.83-1.16) 09/06/18 17:15 - Time Spent With Patient Time Spent with Patient: greater than 35 minutes Time Spent with Patient: Greater than 35 minutes spent on this patients care, greater than 50% of time spent counseling, educating, and coordinating care regarding the above mentioned plan. ICD10 Worksheet Patient Problems: Problems Problem Status Onset Dyspnea Acute Hypoxia Acute Leukopenia Acute Renal insufficiency Acute Stage IV breast cancer in female Acute
[2018-09-07] MEDS: Everolimus [Afinitor] 5 MG PO SCH (17:41)
[2018-09-07] MEDS: AMITRIPTYLINE HCL 50 MG TAB PO SCH (20:07)
[2018-09-07] MEDS: NEBIVOLOL HCL 5 MG TAB PO SCH (20:10)
[2018-09-08] MEDS: LEVOTHYROXINE 50 MCG TAB PO SCH (06:01)
[2018-09-08 06:38] LABS: PLATELET COUNT 41 10^3/uL (150-400)
[2018-09-08] MEDS: LETROZOLE 2.5 MG TAB PO SCH (08:48)
[2018-09-08] MEDS: levETIRAcetam 500 MG TAB PO SCH (08:49)
[2018-09-08] MEDS: PROPANTHELINE BROMIDE 15 MG PO SCH ×2 (08:49→16:35)
[2018-09-08] MEDS: GABAPENTIN 300 MG CAP PO SCH ×2 (08:49→15:23)
[2018-09-08] MEDS: PANTOPRAZOLE SODIUM 40 MG TAB PO SCH (08:49)
[2018-09-08] MEDS ORDERED: MAGNESIUM SULF 2 GM/WATER 50 ML IV ONE (08:52)
[2018-09-08] MEDS ORDERED: FUROSEMIDE 20 MG TAB PO SCH (09:00)
[2018-09-08] MEDS ORDERED: MAGNESIUM OXIDE 400 MG TAB PO SCH (09:00)
--- NOTE | 2018-09-08 12:01 | SOAPPROG ---
SOAP Progress Note Assessment/Plan: Assessment: 1) Metastatic breast cancer 2) Pneumonitis possibly secondary to [employer] Plan: Desire is doing somewhat better and will likely be discharged home later today on Oxygen. I have asked her to stop taking [employer]initor until she sees Dr. Son in outpatient follow up as this can be associated with pneumonitis. She can continue her Letrozole. She verbalizes understanding of this instruction. I will notify Dr. Son of her discharge so that outpatient follow up can be arranged. Case d/w Dr. Ashton 09/08/18 11:58 Subjective: Feels better though still using O2. Hoping to go home today. Objective: Vital Signs Temp Pulse Resp BP Pulse Ox 36.6 C 90 16 108/56 L 93 09/08/18 08:17 09/08/18 08:17 09/08/18 08:17 09/08/18 08:17 09/08/18 08:17 Microbiology 09/06/18 23:13 Respiratory Panel (PCR) - Final Nasal, Sinus - Eswab No Organism Detected By Pcr Laboratory Results 09/08/18 06:05 09/08/18 06:05 09/07/18 09/08/18 09/09/18 05:59 05:59 05:59 Intake Total 500 1400 Output Total 300 1650 Balance 200 -250 PT 13.0 SEC (12.0-15.0) 09/06/18 17:15 INR 1.02 (0.83-1.16) 09/06/18 17:15 - Time Spent With Patient Time Spent With Patient: 20 minutes Physical Exam - Physical Exam General Appearance: alert, no apparent distress EENT: PERRL/EOMI Respiratory: crackles Cardiac/Chest: regular rate, rhythm Neuro/Psych: alert, normal mood/affect ICD10 Worksheet Patient Problems: Problems Problem Status Onset Dyspnea Acute Hypoxia Acute Leukopenia Acute Renal insufficiency Acute Stage IV breast cancer in female Acute
[2018-09-08 12:04] VITALS: BP 106/52
--- NOTE | 2018-09-08 13:13 | PDDCSUM ---
Discharge Summary Discharge Summary: Date of Admission: 09/06/2018 Date of Discharge: 09/08/2017 Discharge Diagnoses: Acute on Chronic hypoxemic respiratory failure, on O2 Suspected pneumonitis, AE of cancer therapy Diastolic CHF w/o exacerbation Stage IV breast cancer with metastases to lungs, liver, bone JOSE GUADALUPE on CKD St 3 H/o sebaceous carcinoma R eye, s/p R eye enucleation Partial blindness Seizure disorder Hypotension, 2/2 BP med AE- resolved Admission Diagnoses: Acute hypoxemic respiratory failure Pancytopenia Renal insufficiency Stage IV breast cancer in female Consultants: Oncology-Dr. Alida Fields [facility] Course: Patient is a 63-year-old female who was sent by her oncologist to hospital for shortness of breath and dyspnea on exertion. The patient had experienced similar episodes in the past, but noticed progressive worsening in the few days prior to admission. The patient's proBNP was elevated and she was known to have a history of diastolic CHF, but there was no peripheral edema and minimal ground-glass infiltrates on CT scan of the chest. ProBNP was more likely elevated because the patient has CKD and a chronic lung abnormality. The patient was given a couple doses of furosemide, which did not help. The rounding oncologists compared the patient's CT chest to her last PET CT from [facility], which showed no progression of cancer in the lungs. The patient's dyspnea is suspected to be from pneumonitis, possibly secondary to her chemotherapy. Chemotherapy was discontinued. Patient was also noted to be hypotensive throughout the admission and her blood pressure medication was held. She was recommended to maintain a blood pressure log at home and follow up with her PCP to discuss whether or not to go back on blood pressure medication. Patient was medically stable and discharged home with home oxygen and home healthcare. Physical Exam: Gen- alert, in NAD, able to ambulate. Condition: Stable. Discharged to: Home with home healthcare and home oxygen Pertinent tests/labs/imaging: CTA chest - mild ground glass opacities suggestive of pulm edema/inflammation. CXR - mild infiltrates noted near masses. Medications: Please see med rec form. No new medications. Held medications- doxazosin, nebivolol, everolimus. Special instructions: Check your BP regularly, 2-3 times throughout the day and keep a log of the values. After 1 week, take the BP log in to your PCP to discuss whether or not to resume BP medication. Holding doxazosin (Cardura) and Bystolic now since blood pressure has been very low. Hold Everolimus for a week or at least until you talk with Oncologist. New order for portable and home O2 given. Goal O2 saturation is around mid-90s. You may titrate O2 based on the readings of your pulse oximeter. Return to hospital if symptoms worsen. Follow up: Follow up with PCP in 1 week. Follow up with oncologist in 3-5 days. Follow up with neurologist in 1-2 days as planned > 30 minutes of total time was spent on counseling and coordination of care for this patient's discharge.
--- NOTE | 2018-09-08 13:16 | PDIAF ---
- Diagnosis Diagnosis: hypoxemic respiratory failure, pneumonitis, metastatic breast cancer Code Status: Do Not Resuscitate - Medication Management Discharge Medications: electronically signed and located in the Home Medication List. - Orders Services needed: Home Care, Registered Nurse, Physical Therapy, Occupational Therapy Home Care Face to Face: I certify that this patient was under my care and that I had the required [id number] encounter meeting the encounter requirements on the discharge day. My findings support the fact that the patient is homebound as defined in Home Care Face to Face Continued: CMS Chapter 7 Medicare Benefits Manual 30.1.1 , The condition of the patient is such that there exists a normal inability to leave home and consequently, leaving home would require a considerable and taxing effort. Isolation Type: Chemotherapy Isolation Oxygen: 2L NC Diet Recommendation: no restrictions on diet Diet Texture: Regular Texture Diet Weigh Patient: weekly Additional Instructions: Check your BP regularly, 2-3 times throughout the day and keep a log of the values. After 1 week, take the BP log in to your PCP to discuss whether or not to resume BP medication. Holding doxazosin (Cardura) and Bystolic now since blood pressure has been very low. Hold Everolimus for a week or at least until you talk with Oncologist. New order for portable and home O2 given. Goal O2 saturation is around mid-90s. You may titrate O2 based on the readings of your pulse oximeter. Return to hospital if symptoms worsen. - Follow Up Care Current Providers and Referrals: Pat Alvarado MD [Primary Care Provider] - follow up in 1 week (Check renal function patnel and magnesium in office. Discuss adjusting blood pressure medicine. Discuss whether to continue Lasix (furosemide). ) Blanca Son MD [Medical Doctor] - 3-5 days (to discuss cancer therapy) Mateusz Root PA [Physician Senior Sales Director] - 1-2 days (as scheduled)
--- NOTE | 2018-09-08 13:34 | ASMTCMCOM ---
CM Note CM Note Notes: Patient plan of care reviewed with Dr. Ashton. HHC ordered. Per patient she has had preferred [facility] in the past. Referral sent via [employer]. CM to follow. Plan: Home with C Date Signed: 09/08/2018 01:34 PM Electronically Signed By:Alba Moctezuma RN
--- NOTE | 2018-09-08 13:35 | ASMTLACE ---
LACE Length of stay for Answers: 1 day current admission Comorbidities - select Answers: Any tumor (including all that apply lymphoma or leukemia) Score: 3 Date Signed: 09/08/2018 01:34 PM Electronically Signed By:Alba Moctezuma RN
--- NOTE | 2018-09-08 14:31 | PDMN ---
Medical Necessity Medical necessity: [facility] Pulmonary Disease: 63 yo w/ SOB and fatigue in setting of known stage IV breast ca. Eval reveals acute hypoxemic resp fx, pancytopenia, and renal insufficiency, creat 1.7. Initially OBS for workup/tx but pt requires additional MN for ongoing acute hypoxemic resp fx w/ pt cont to feel SOB, attempt to wean off but sats dropped to 70s on RA, remains on O2, poss r/t acute dCHF exacerbation, IV Lasix started. Pt developed issues also with hypotension. Holding BP meds. Hx breast ca mets to brain, bone, liver, MDS, seizures, pneumonia, osteoporosis. Change to IP status 09/07/18@1902 per MD order.
[2018-09-09] MEDS ORDERED: fentaNYL 50 MCG PATCH TD SCH (09:00)
--- NOTE | 2018-09-09 10:38 | ASDISCHSUM ---
Discharge Information Plan Status: Medically Cleared to Leave:09/08/2018 Discharge Date:09/08/2018 05:37 PM D/C Disposition: ADT D/C Disposition:Home, Routine, Self-Care Projected Discharge Date:09/08/2018 11:00 AM Transportation at D/C: Discharge Delay Reason: Follow-Up Date:09/08/2018 11:00 AM Discharge Slot: Final Diagnosis: Placement Information Referral Type:*Home Health Care Services Referral ID:[id number] Provider Name:[facility] Address 1:[address] [place] [address] Address 2: City:[place] Selection Factors: State:[place] Patient Contact Information Contact Name:MARY GRACE Relationship: Address: City: [facility] Phone: [facility]/Zip Code: Email: Financial Information Financial Class:BCOP Primary Plan Desc:[employer] [facility] Primary Plan Number:[id number] Secondary Plan Desc: Secondary Plan Number: Assessment Information LACE LACE Length of stay for Answers: 1 day current admission Comorbidities - select Answers: Any tumor (including all that apply lymphoma or leukemia) Score: 3 Date Signed: 09/08/2018 01:34 PM Electronically Signed By:Alba Moctezuma RN [facility] CM Progress Note CM Note CM Note Notes: CM reviewed chart for d/c planning. Pt is a 63 y/o female who presented to the ED with dyspnea on exertion and mild hypoxia. Pt has a medical hx of metastatic breast cancer with extensive osseous mets, myelodysplastic syndrome and sebaceous carcinoma of the right eyelid. She presently lives with her brother and wzuhjc-oe-zid. PT has been ordered and has no recommendations for further treatment, but will continue to assess. CM will follow. D/C Plan: TBD Date Signed: 09/07/2018 03:19 PM Electronically Signed By:Verna Hull [facility] CM Progress Note CM Note CM Note Notes: Patient plan of care reviewed with Dr. Ashton. C ordered. Per patient she has had preferred [facility] in the past. Referral sent via [employer]. CM to follow. Plan: Home with [facility] Date Signed: 09/08/2018 01:34 PM Electronically Signed By:Alba Moctezuma RN [facility] CM Progress Note CM Note CM Note Notes: Spoke with patient;s brother Justo and his Steff and they are open to receiving HHC services for his sister Desire. [facility]. Family notified. Plan: Home with [facility] Date Signed: 09/09/2018 10:10 AM Electronically Signed By:Alba Moctezuma RN Intervention Information
--- NOTE | 2018-09-09 10:38 | ASMTCMCOM ---
CM Note CM Note Notes: Spoke with patient;s brother Justo and his Steff and they are open to receiving [facility] services for his sister Desire. [facility] is able to accept. Family notified. Plan: Home with C Date Signed: 09/09/2018 10:10 AM Electronically Signed By:Alba Moctezuma RN
== END 2018-09-08 17:37 | disposition home or self-care (01) | DRG 205 ==
LOC: F1N 20:23 → OBSVTOIN 09-07 19:02
PROVIDERS: ADMIT Internal Medicine; ATTEND Internal Medicine
DX: J70.2 Acute drug-induced interstitial lung disorders (principal); T45.1X5A Adverse effect of antineoplastic and immunosuppressive drugs, initial encounter; J96.21 Acute and chronic respiratory failure with hypoxia; I50.30 Unspecified diastolic (congestive) heart failure; N17.9 Acute kidney failure, unspecified; D61.810 Antineoplastic chemotherapy induced pancytopenia; N18.3 Chronic kidney disease, stage 3 (moderate); D46.9 Myelodysplastic syndrome, unspecified; C79.31 Secondary malignant neoplasm of brain; C79.51 Secondary malignant neoplasm of bone; C78.7 Secondary malignant neoplasm of liver and intrahepatic bile duct; C78.00 Secondary malignant neoplasm of unspecified lung; G40.909 Epilepsy, unspecified, not intractable, without status epilepticus; Z85.840 Personal history of malignant neoplasm of eye; Z87.01 Personal history of pneumonia (recurrent); Z85.3 Personal history of malignant neoplasm of breast; Z66 Do not resuscitate
CPT/HCPCS: 84484-ER; 97161-GP; G0378; J1642; J1940; J1956; J3475; Q9967

== ENCOUNTER 2018-10-08 00:20 | Inpatient (IN) | payer BC ==
--- NOTE | 2018-10-08 00:55 | EDPHY ---
H & P Stated Complaint: leg spasms since 1999, confusion Time Seen by Provider: 10/08/18 00:43 HPI/ROS: Chief Complaint: Confusion, leg spasms HPI: 63-year-old woman with a history of stage IV breast cancer with bony metastasis, diastolic congestive heart failure, pneumonitis and chronic kidney disease. Patient is being brought in by family after an episode of confusion tonight. Patient has been having occasional leg spasms with increasing lower extremity pain. This is not new for her. She is currently on a fentanyl patch in takes hydrocodone as well. This evening the patient was complaining of worsening pain and was writhing, complaining of spasms in her legs. She then became acutely confused and delirious per her brother with whom she lives. This is unusual for her. Family had a difficult time managing her. Patient is confused about when she last placed a fentanyl patch, stating she put 1 on today. Family indicates that she placed fentanyl patch on her chest yesterday. She was admitted 1 month ago for increasing dyspnea started on oxygen for pneumonitis which was thought to be secondary to her chemotherapy. She is continuing to use her oxygen. No new chest pain or shortness of breath. No fevers or chills. No abdominal pain. No urinary urgency or frequency. Patient does seem better for family now. She is complaining a of 8/10 lower extremity pain. No falls or injuries. She is currently alert and oriented x2. ROS: 10 systems were reviewed and were negative except those elements noted in the HPI. PMH: Stage IV breast cancer with bony metastasis, diastolic congestive heart failure, chronic kidney disease, pneumonitis, history of mild dysplastic disease from her 1st chemotherapy treatments 10 years ago. Social History: No smoking, no alcohol, no recreational drug use Family History: non-contributory Physical Exam: Gen: Awake, Alert, No Distress HEENT: Nose: no rhinorrhea Eyes: Right eye is enucleated, left eye pupil is round and reactive to light, extraocular movements intact Mouth: Dry mucosa Neck: Supple, no JVD Chest: nontender, lungs clear to auscultation, she has a port in her right chest , she has a 50 mcg fentanyl patch on her left chest Heart: S1, S2 normal Abd: Soft, non-tender, no guarding Back: no CVA tenderness, no midline tenderness Ext: no edema, non-tender Skin: no rash Neuro: CN II-XII intact, Sensation grossly intact, Strength 5/5 in bilateral upper and lower extremities - Personal History Current Tetanus/Diphtheria Vaccine: Unsure - Medical/Surgical History Hx Asthma: No Hx Chronic Respiratory Disease: No Hx Diabetes: No Hx Cardiac Disease: No Hx Renal Disease: No Hx Cirrhosis: No Hx Alcoholism: No Hx HIV/AIDS: No Hx Splenectomy or Spleen Trauma: No Other PMH: Endometriosis, Total Hyst 1989, Tonsillectomy 1990, Carpal tunnel Surgery 2000 ( R hand), cataract surgery 2005, Skin cancer R neck, Eye cancer with multiple surgeries 2006, Placement of Power Port 2006, Mastectomy (L), Gallbladder removal (2008), Enucleation Evisceration of R eye 2013, Stage 4 Breast Cancer R breast 2016, 3 teeth extracted 2017 - Social History Smoking Status: Never smoked Constitutional: Initial Vital Signs Temperature (C) 36.5 C 10/08/18 00:34 Heart Rate 108 H 10/08/18 00:34 Respiratory Rate 20 10/08/18 00:34 Blood Pressure 145/108 H 10/08/18 00:34 O2 Sat (%) 100 10/08/18 00:34 O2 Delivery Mode Nasal Cannula O2 (L/minute) 2 Allergies/Adverse Reactions: cimetidine [From Tagamet] Allergy (Verified 09/06/18 19:33) Other-Enter Comments zolpidem [From Ambien] Allergy (Verified 09/06/18 19:33) Other-Enter Comments Home Medications: Medication Instructions Recorded Gabapentin 600 mg PO TID #0 04/20/17 Levothyroxine [Synthroid 50 mcg 50 mcg PO DAILY06 #0 04/20/17 (*)] Propantheline [place] 15 mg PO TID 04/20/17 Amitriptyline HCl 75 mg PO HS #0 04/23/17 Butalbital/Acetaminophen 1 each PO DAILY PRN #0 04/23/17 [Butalbital-Acetaminophn 50-325] Omeprazole 40 mg PO BID #0 04/23/17 fentaNYL [Duragesic 50 MCG Patch 50 mcg TD Q72H #0 04/23/17 (*)] Hydrocodone/APAP 5/325 [[place] 1 each PO Q6-8PRN PRN 04/08/18 5/325 (*)] Promethazine HCl/Codeine 5 ml PO Q6-8PRN PRN 04/08/18 [Prometh-Codein 6.25-10 mg/5 ml] levETIRAcetam [Keppra 500 mg (*)] 1,000 mg PO BID 04/08/18 Letrozole [Femara 2.5 mg (*)] 2.5 mg PO DAILY 09/06/18 diphenhydrAMINE [Benadryl 25 MG 25 mg PO DAILY PRN 09/06/18 (*)] AFINITOR 10/08/18 Zofran 10/08/18 Medical Decision Making - Diagnostics Imaging Results: EXAM: CT Head Without Intravenous Contrast. CLINICAL HISTORY: AMS/COFUSION. Hx: BREAST CA STAGE 4 TECHNIQUE: Axial computed tomography images of the head/brain without intravenous contrast. COMPARISON: None provided. FINDINGS: BRAIN: No acute intraparenchymal hemorrhage. No mass lesion. No CT evidence for acute territorial infarct. No midline shift or extra-axial collection. ORBITS: The right globe is absent. SINUSES AND MASTOIDS: Right mastoiditis. SOFT TISSUES: No significant facial or scalp soft tissue swelling evident. No radiopaque foreign body is seen. BONES: Extensive osseous metastatic disease. IMPRESSION: 1. Extensive osseous metastatic disease. 2. Right mastoiditis. ELECTRONICALLY SIGNED BY: Brian Soto MD October 08, 2018 1:28:37 AM MDT ED Course/Re-evaluation: Patient CBC noted. She has pancytopenia which is known. Her blood counts are lower than they have been however. Still awaiting remainder of her test results. Laboratory evaluations otherwise noted. Positive kidney area with moderately elevated BUN and creatinine. Not consistent with acute kidney injury consistent with dehydration. Given the patient's confusion, anemia and dehydration plan will be to admit to the hospital for hydration and further evaluation. I have discussed with Dr. Ramirez, hospitalist. She will admit to her service for further care. - Data Points Laboratory Results: Laboratory Results 10/08/18 00:55 10/08/18 00:55 10/08/18 10/08/18 10/08/18 01:38 00:55 00:55 WBC 3.07 10^3/uL L 10^3/uL (3.80-9.50) RBC 2.74 10^6/uL L 10^6/uL (4.18-5.33) Hgb 8.3 g/dL L g/dL (12.6-16.3) Hct 24.3 % L % (38.0-47.0) MCV 88.7 fL fL (81.5-99.8) MCH 30.3 pg pg (27.9-34.1) MCHC 34.2 g/dL g/dL (32.4-36.7) RDW 14.8 % % (11.5-15.2) Plt Count 51 10^3/uL L 10^3/uL (150-400) MPV 9.7 fL fL (8.7-11.7) Neut % (Auto) 77.5 % H % (39.3-74.2) Lymph % (Auto) 9.8 % L % (15.0-45.0) [place] % (Auto) 11.4 % % (4.5-13.0) Eos % (Auto) 0.3 % L % (0.6-7.6) Baso % (Auto) 0.3 % % (0.3-1.7) Nucleat RBC Rel Count 0.0 % % (0.0-0.2) Absolute Neuts (auto) 2.38 10^3/uL 10^3/uL (1.70-6.50) Absolute Lymphs (auto) 0.30 10^3/uL L 10^3/uL (1.00-3.00) Absolute Monos (auto) 0.35 10^3/uL 10^3/uL (0.30-0.80) Absolute Eos (auto) 0.01 10^3/uL L 10^3/uL (0.03-0.40) Absolute Basos (auto) 0.01 10^3/uL L 10^3/uL (0.02-0.10) Absolute Nucleated RBC 0.00 10^3/uL 10^3/uL (0-0.01) Immature Gran % 0.7 % % (0.0-1.1) Immature Gran # 0.02 10^3/uL 10^3/uL (0.00-0.10) RBC/WBC/PLT Morphology TNP Platelet Estimate TNP Sodium 134 mEq/L L mEq/L (135-145) Potassium 4.2 mEq/L mEq/L (3.5-5.2) Chloride 96 mEq/L L mEq/L (97-110) Carbon Dioxide 22 mEq/l mEq/l (22-31) Anion Gap 16 mEq/L H mEq/L (6-14) BUN 29 mg/dL H mg/dL (7-23) Creatinine 1.2 mg/dL H mg/dL (0.6-1.0) Estimated GFR 45 Glucose 173 mg/dL H mg/dL (70-100) Calcium 9.6 mg/dL mg/dL (8.5-10.4) Urine Color YELLOW Urine Appearance HAZY Urine pH 5.0 (5.0-7.5) Ur Specific [place] 1.021 (1.002-1.030) Urine Protein 1+ H (NEGATIVE) Urine Ketones 1+ H (NEGATIVE) Urine Blood NEGATIVE (NEGATIVE) Urine Nitrate NEGATIVE (NEGATIVE) Urine Bilirubin NEGATIVE (NEGATIVE) Urine Urobilinogen 2.0 EU H EU (0.2-1.0) Ur Leukocyte Esterase NEGATIVE (NEGATIVE) Urine RBC 1-3 /hpf /hpf (0-3) Urine WBC 3-5 /hpf H /hpf (0-3) Ur Epithelial Cells 1+ /lpf /lpf (NONE-1+) Calcium Oxalate Crystal PRESENT /hpf /hpf (NONE-1+) Urine Mucus TRACE /lpf /lpf (NONE-1+) Urine Glucose NEGATIVE (NEGATIVE) Departure - Departure Disposition: [facility] Inpatient Acute Clinical Impression: Renal insufficiency, Dehydration, Anemia Referrals: Pat Alvarado MD [Primary Care Provider] - As per Instructions
[2018-10-08 01:05] LABS: PLATELET COUNT 51 10^3/uL (150-400)
[2018-10-08] MEDS ORDERED: ONDANSETRON 4 MG/2 ML VIAL IVP PRN (03:12)
[2018-10-08] MEDS ORDERED: ACETAMINOPHEN 325 MG TAB PO PRN (03:12)
[2018-10-08] MEDS ORDERED: ONDANSETRON DISINTEGRATING 4 MG TAB PO PRN (03:12)
[2018-10-08] MEDS ORDERED: NS 1,000 ML IV SCH (03:15)
--- NOTE | 2018-10-08 03:25 | PDGENHP ---
History and Physical - Chief Complaint Confusion, lower extremity cramping - History of Present Illness Source-patient is quite fatigued and somnolent. She is able to answer few simple questions. Her brother and [id number] are at bedside and provide majority of the history. EMR was reviewed and case discussed with ED provider. HPI-This a very pleasant 63-year-old female with past medical history significant for stage IV breast cancer with mets to brain bone and liver, MDS, GERD, osteoporosis, seizure disorder, hypothyroidism, diastolic CHF who presents emergency department today with her family with complaints of progressively worsening lower extremity leg pain and cramping as well as is the development of confusion. Patient without any known or reported fevers or chills. She has had poor appetite and declined oral intake and hydration although she has been encouraged to do so on a regular basis she declines to stay hydrated. Patient also has a longstanding history of lower extremity leg cramps worse in the evening for many years. This evening pain was significantly more severe than her baseline. Patient denies any chest pain, shortness of breath, nausea or abdominal pain. Patient's [id number] on notes that she had multiple episodes of nausea vomiting over the last several days some clear which medications if any she has been able to take. There also unclear when patient last change her fentanyl patch as she had been a little bit confused and reporting daily to her family that it is time to change her patch. No tonic-clonic or seizure-like activities have been witnessed the in the last several days. History Information - Allergies/Home Medication List Allergies/Adverse Reactions: cimetidine [From Tagamet] Allergy (Verified 09/06/18 19:33) Other-Enter Comments zolpidem [From Ambien] Allergy (Verified 09/06/18 19:33) Other-Enter Comments Home Medications: Gabapentin 600 mg PO TID #0 04/20/17 [Last Taken 09/06/18 AM] Levothyroxine [Synthroid 50 mcg (*)] 50 mcg PO DAILY06 #0 04/20/17 [Last Taken 09/06/18] Propantheline [place] 15 mg PO TID 04/20/17 [Last Taken 09/06/18 AM] Amitriptyline HCl 75 mg PO HS #0 04/23/17 [Last Taken 09/05/18] Butalbital/Acetaminophen [Butalbital-Acetaminophn 50-325] 1 each PO DAILY PRN # 0 04/23/17 [Last Taken 08/30/18] Omeprazole 40 mg PO BID #0 04/23/17 [Last Taken 09/05/18] fentaNYL [Duragesic 50 MCG Patch (*)] 50 mcg TD Q72H #0 04/23/17 [Last Taken 10/20] Hydrocodone/APAP 5/325 [[place] 5/325 (*)] 1 each PO Q6-8PRN PRN 04/08/18 [Last Taken 09/05/18 PM] Promethazine HCl/Codeine [Prometh-Codein 6.25-10 mg/5 ml] 5 ml PO Q6-8PRN PRN [Last Taken 04/07/18] levETIRAcetam [Keppra 500 mg (*)] 1,000 mg PO BID 04/08/18 [Last Taken 09/06/18 AM] Letrozole [Femara 2.5 mg (*)] 2.5 mg PO DAILY 09/06/18 [Last Taken 09/06/18] diphenhydrAMINE [Benadryl 25 MG (*)] 25 mg PO DAILY PRN 09/06/18 [Last Taken Unknown] AFINITOR 10/08/18 [Last Taken Unknown] Zofran 10/08/18 [Last Taken Unknown] I have personally reviewed and updated: family history, medical history, social history, surgical history - Past Medical History cancer (Metastatic breast cancer IV; mets to brain, bone and liver, myelodysplastic syndrome; squamous cell carcinoma, hypothyroidism, diastolic CHF ), GERD, osteoporosis, pneumonia, seizures - Surgical History Reports: cancer surgery (Right eye removal), cholecystectomy, hysterectomy ( Total/BSO), mastectomy (Left breast) - Family History Positive for: cancer (Father w/prostate CA), father with history of CAD younger than 55, hypertension - Social History Smoking Status: Never smoked Alcohol Use: None Drug Use: None Additional social history: Lives w/brother and [id number]. Cor status-full. No prolonged life support greater than 1 week. Patient's brother reports that an advanced directive was completed at [facility]. Review of Systems Review of Systems: ROS: 10pt was reviewed & negative except for what was stated in HPI & below Physical Exam Physical Exam: Selected Entries 10/08/18 00:34 Blood Pressure Automatic Method Heart Rate 108 H Respiratory 20 Rate O2 Sat (%) 100 Temperature (C) 36.5 C Blood Pressure 145/108 H Mean Arterial 120 H Pressure (MAP) O2 (L/minute) 2 O2 Delivery Nasal Cannula Mode Temperature Oral Source Temp Pulse Resp BP Pulse Ox 36.5 C 104 H 18 171/105 H 98 10/08/18 00:34 10/08/18 01:40 10/08/18 01:40 10/08/18 01:40 10/08/18 01:40 Constitutional: no apparent distress, chronically ill appearing, other (NAD. Patient is resting asleep on the gurney. Brother and [id number] are at bedside.) Eyes: PERRL (Right eye is absent. Left eye reactive.), anicteric sclera, EOMI ( Grossly normal left extraocular movement), No scleral injection Ears, Nose, Mouth, Throat: dry mucous membranes, other (No nasal discharge.), No poor dentition Cardiovascular: regular rate and rhythym, no murmur, rub, or gallop, pulses symmetric bilaterally, No edema Peripheral Pulses: 1+: dorsalis-pedis (R), dorsalis-pedis (L) Respiratory: no respiratory distress, clear to auscultation, other (Few crackles at the right base.), No inspiratory crackles Gastrointestinal: normoactive bowel sounds, soft, non-tender abdomen, tenderness (Right upper quadrant), distension, No guarding, No rebound Genitourinary: no bladder tenderness, No fernandez in urethra Skin: warm, no rashes or abrasions (Small healing scab dorsum of the left foot) , other ([place]), No mottled Musculoskeletal: no muscle tenderness, generalized weakness (Patient is able to sit up independently with use of the side rails.), No pain with ROM Neurologic: AAOx3, sensation intact bilaterally, other (Patient is quite somnolent but oriented to person place. Time was not asked.) Psychiatric: flat affect, other (Patient with poor response and is quite fatigued.), No agitated Lab Data & Imaging Review 10/08/18 00:55 10/08/18 00:55 WBC 3.07 10^3/uL (3.80-9.50) L 10/08/18 00:55 RBC 2.74 10^6/uL (4.18-5.33) L 10/08/18 00:55 Hgb 8.3 g/dL (12.6-16.3) L 10/08/18 00:55 Hct 24.3 % (38.0-47.0) L 10/08/18 00:55 MCV 88.7 fL (81.5-99.8) 10/08/18 00:55 MCH 30.3 pg (27.9-34.1) 10/08/18 00:55 MCHC 34.2 g/dL (32.4-36.7) 10/08/18 00:55 RDW 14.8 % (11.5-15.2) 10/08/18 00:55 Plt Count 51 10^3/uL (150-400) L 10/08/18 00:55 MPV 9.7 fL (8.7-11.7) 10/08/18 00:55 Neut % (Auto) 77.5 % (39.3-74.2) H 10/08/18 00:55 Lymph % (Auto) 9.8 % (15.0-45.0) L 10/08/18 00:55 [place] % (Auto) 11.4 % (4.5-13.0) 10/08/18 00:55 Eos % (Auto) 0.3 % (0.6-7.6) L 10/08/18 00:55 Baso % (Auto) 0.3 % (0.3-1.7) 10/08/18 00:55 Nucleat RBC Rel Count 0.0 % (0.0-0.2) 10/08/18 00:55 Absolute Neuts (auto) 2.38 10^3/uL (1.70-6.50) 10/08/18 00:55 Absolute Lymphs (auto) 0.30 10^3/uL (1.00-3.00) L 10/08/18 00:55 Absolute Monos (auto) 0.35 10^3/uL (0.30-0.80) 10/08/18 00:55 Absolute Eos (auto) 0.01 10^3/uL (0.03-0.40) L 10/08/18 00:55 Absolute Basos (auto) 0.01 10^3/uL (0.02-0.10) L 10/08/18 00:55 Absolute Nucleated RBC 0.00 10^3/uL (0-0.01) 10/08/18 00:55 Immature Gran % 0.7 % (0.0-1.1) 10/08/18 00:55 Immature Gran # 0.02 10^3/uL (0.00-0.10) 10/08/18 00:55 RBC/WBC/PLT Morphology TNP 10/08/18 00:55 Platelet Estimate TNP 10/08/18 00:55 Sodium 134 mEq/L (135-145) L 10/08/18 00:55 Potassium 4.2 mEq/L (3.5-5.2) 10/08/18 00:55 Chloride 96 mEq/L (97-110) L 10/08/18 00:55 Carbon Dioxide 22 mEq/l (22-31) 10/08/18 00:55 Anion Gap 16 mEq/L (6-14) H 10/08/18 00:55 BUN 29 mg/dL (7-23) H 10/08/18 00:55 Creatinine 1.2 mg/dL (0.6-1.0) H 10/08/18 00:55 Estimated GFR 45 10/08/18 00:55 Glucose 173 mg/dL (70-100) H 10/08/18 00:55 Calcium 9.6 mg/dL (8.5-10.4) 10/08/18 00:55 Urine Color YELLOW 10/08/18 01:38 Urine Appearance HAZY 10/08/18 01:38 Urine pH 5.0 (5.0-7.5) 10/08/18 01:38 Ur Specific [place] 1.021 (1.002-1.030) 10/08/18 01:38 Urine Protein 1+ (NEGATIVE) H 10/08/18 01:38 Urine Ketones 1+ (NEGATIVE) H 10/08/18 01:38 Urine Blood NEGATIVE (NEGATIVE) 10/08/18 01:38 Urine Nitrate NEGATIVE (NEGATIVE) 10/08/18 01:38 Urine Bilirubin NEGATIVE (NEGATIVE) 10/08/18 01:38 Urine Urobilinogen 2.0 EU (0.2-1.0) H 10/08/18 01:38 Ur Leukocyte Esterase NEGATIVE (NEGATIVE) 10/08/18 01:38 Urine RBC 1-3 /hpf (0-3) 10/08/18 01:38 Urine WBC 3-5 /hpf (0-3) H 10/08/18 01:38 Ur Epithelial Cells 1+ /lpf (NONE-1+) 10/08/18 01:38 Calcium Oxalate Crystal PRESENT /hpf (NONE-1+) 10/08/18 01:38 Urine Mucus TRACE /lpf (NONE-1+) 10/08/18 01:38 Urine Glucose NEGATIVE (NEGATIVE) 10/08/18 01:38 Imaging Review: Rotated image of the chest. X-ray report is pending. Image reviewed myself. Visualized and Interpreted Chest x-ray results: Yes Chest X-Ray results: no infiltrate, normal heart size Visualized and Interpreted imaging results: Yes Interpretation: Image reviewed and preliminary direct radiology report was read. Extensive osseous metastatic disease right mastoiditis. Assessment & Plan Assessment: This a very pleasant 63-year-old female with past medical history significant for stage IV breast cancer with mets to brain bone and liver, MDS, GERD, osteoporosis, seizure disorder, hypothyroidism, diastolic CHF who presents emergency department today with her family with complaints of progressively worsening lower extremity leg pain and cramping as well as is the development of confusion. #Confusion - patient's mentation is improved slightly since her arrival to the floor now she is mostly just somnolent and tired. Unclear if this is related to polypharmacy, or less likely progression of malignancy (as patient with reported normal mentation just the day prior. or decreased clearance with patient's history of renal insufficiency. Family reports that patient sleeps intermittently through the day but has not gone any prolonged. Number of days without sleep the that they are aware of. Patient without any current fevers or chills but did have recent episode of nausea and vomiting in the last several days with poor oral hydration. Continue with some IV fluid hydration and repeat H&H later in the morning. #Renal insufficiency (Acute) - previous baseline creatinine appeared to be 0.9. Gentle IV fluids as noted above. #Dehydration (Acute) - patient mucous membranes are dry. BUN is elevated. Listed history of diastolic CHF a patient does not appear to be decompensated. Discussed IV fluids with patient's family and patient's AV to proceed. Will limit to 1 L infused slowly. Encourage oral hydration. DC when patient is tolerating p.o. Well. #Lower extremity cramping - family reports this is a chronic ongoing issue but most severe in the last 1-2 days. Continue with hydration and monitoring anemia and electrolytes. IV fluid replacement, electrolyte replacement and consider iron replacement or symptomatic treatment. #Anemia (Acute) - patient with history MDS. Hematocrit slightly below baseline a 24.3. She received IV fluids will plan to repeat an H&H later in the day. Patient without any hypotension the could also be contributing to her confusion. Transfusion for H&H less than 7 and 21. #Metastatic breast cancer - patient is followed by Dr. Son. Courtesy notification of patient's admission as per day team. #GERD - patient without any complaints of symptoms at this time. #Seizure disorder - resume Keppra #Hypothyroidism - continue replacement #Diastolic CHF chronic and compensated - monitor fluid status with IV fluids. #History of pneumonitis - patient currently saturating well with supplemental oxygen. Chemotherapy was previously discontinued. FEN - normal saline at 75 mL/hour for 1 L. Electrolyte currently adequate replace p.r.n.. Advance diet as tolerated and encourage oral hydration. PPX- SCDs if tolerated. Patient is anemic and thrombocytopenic anticoagulation contraindicated at this time. Cor status-full. Patient has completed advanced directive with [facility]. She would not want for greater than a week of prolonged life support or nutrition. Disposition-patient admitted observation status on med oncology floor for continued hydration treatment symptom and monitoring.
--- NOTE | 2018-10-08 10:03 | ASMTCMCOM ---
CM Note CM Note Notes: Pt was admitted this morning for dehydration, anemia, and confusion. CM met with pt in her room. Pt was able to communicate most information but did have some difficulty with mild confusion when trying to recall some details. History of congestive heart failure, chronic kidney disease, pancytopenia, and metastatic stage 4 breast cancer. Pt lives at home with her brother Justo Monae [phone] and [id number] Steff Monae (cell [phone]) in [place]. They help with her care and drive her where she needs to go. She says she mostly only goes out to dr white. Pt is currently using OT and RN services through [facility]; CM verified with them. CM will continue to follow. Plan: TBD, likely home with continued C RN and OT. Pt has a right chest port for outpatient chemo. She uses 2L oxygen around the clock at home. She has a cane but states she has not been using it, though she acknowledges the need for it as she is unsteady on her feet and usually holds onto her brother or [id number] for balance and support. The home does not have stairs but does have a large drop from the front door down to the porch. Pt states that she had set up a counseling appointment to explore her feelings around her cancer but will miss the appt today because of being in the hospital. It was to be her first appt. CM offered to have Spiritual Care meet with her but she declined. Date Signed: 10/08/2018 10:02 AM Electronically Signed By:Nhung Vaughan
[2018-10-08 10:10] LABS: PLATELET COUNT 51 10^3/uL (150-400)
[2018-10-08] MEDS ORDERED: ACETAMINOPHEN PO PRN (16:09)
[2018-10-08] MEDS ORDERED: BUTALBITAL PO PRN (16:09)
[2018-10-08] MEDS ORDERED: PROPANTHELINE BROMIDE 15 MG PO PRN (16:09)
[2018-10-08] MEDS ORDERED: NON-FORMULARY NEW DRUG (Ondansetron Hcl [Zofran] 8 MG) PO PRN (16:09)
[2018-10-08] MEDS ORDERED: LETROZOLE 2.5 MG TAB PO SCH (16:15)
[2018-10-08] MEDS ORDERED: CODEINE/PROMETHAZINE 5 ML UDL PO PRN (16:30)
[2018-10-08] MEDS: levETIRAcetam 500 MG TAB PO SCH (16:49)
[2018-10-08] MEDS: LEVOTHYROXINE 50 MCG TAB PO SCH (16:49)
[2018-10-08] MEDS ORDERED: MAGNESIUM SULF 2 GM/WATER 50 ML IV ONE (17:32)
[2018-10-08] MEDS: PANTOPRAZOLE SODIUM 40 MG TAB PO SCH (17:45)
[2018-10-08] MEDS: Everolimus [Afinitor] 5 MG PO SCH (17:51)
--- NOTE | 2018-10-08 18:02 | HOSPPROG ---
Hospitalist Progress Note Assessment/Plan: 63 yo F w widely metastatic breast CA and seizures here w agitated delirium vs seizures 1. MRI w contrast 2. EEG in AM 3. neurology to see 4. fix electrolytes Subjective: less agitated Objective: Vital Signs Temp Pulse Resp BP Pulse Ox 37.0 C 97 18 139/100 H 98 10/08/18 15:24 10/08/18 15:24 10/08/18 15:24 10/08/18 15:24 10/08/18 15:24 Laboratory Results 10/08/18 09:55 10/08/18 09:55 10/07/18 10/08/18 10/09/18 05:59 05:59 05:59 Intake Total 120 800 Balance 120 800 - Physical Exam Constitutional: no apparent distress Eyes: PERRL Ears, Nose, Mouth, Throat: moist mucous membranes, hearing normal Cardiovascular: regular rate and rhythym, no murmur, rub, or gallop Respiratory: no respiratory distress Gastrointestinal: normoactive bowel sounds, soft, non-tender abdomen Genitourinary: No fernandez in urethra Skin: warm, normal color Musculoskeletal: full muscle strength ICD10 Worksheet Patient Problems: Problems Problem Status Onset Anemia Acute Dehydration Acute Renal insufficiency Acute Dyspnea Acute Hypoxia Acute Leukopenia Acute Stage IV breast cancer in female Acute
[2018-10-08] MEDS ORDERED: GADOBUTROL 10 ML VIAL IVP ONE (20:30)
[2018-10-08] MEDS: GABAPENTIN 300 MG CAP PO SCH (20:36)
[2018-10-08] MEDS: AMITRIPTYLINE HCL 25 MG TAB PO SCH (20:36)
[2018-10-08] MEDS: HYDROCODONE/APAP 5/325 TAB PO PRN (21:55)
[2018-10-09] MEDS: LEVOTHYROXINE 50 MCG TAB PO SCH (04:59)
[2018-10-09 06:56] LABS: PLATELET COUNT 48 10^3/uL (150-400)
--- NOTE | 2018-10-09 08:59 | HOSPPROG ---
Hospitalist Progress Note Assessment/Plan: #Metabolic encephalopathy: nearly resolved -suspect due to acute GI illness -MRI brain with extensive osseous disease and leptomeningeal carcinomatosis ( similar to prior study) -EEG today #Metastatic breast cancer -followed by Dr. Son #Seizure -Keppra #Falls: last this weekend. Likely due to infection. PT/OT #JOSE GUADALUPE: resolved (BL 0.9) due to GI losses, viral infection went around the family #Hypomagnesium: repleted #Normocytic anemia: h/o MDS. Transfuse if Hb <7 #Hypothyroidism: LT4 #Sebaceous carcinoma right eye: enucleation, XRT #Compensated chronic diastolic HF: - monitor fluid status with IV fluids. #History of pneumonitis - chemo-related. Currently stable #Diet: regular #DVT ppx: SCDs Inpatient admission for EEG, PT/OT Subjective: "feel more like self today". No N/V/D Objective: Vital Signs Temp Pulse Resp BP Pulse Ox 36.8 C 100 16 130/70 H 98 10/09/18 08:25 10/09/18 08:25 10/09/18 08:25 10/09/18 08:25 10/09/18 08:25 Laboratory Results 10/09/18 05:00 10/09/18 05:00 10/08/18 10/09/18 10/10/18 05:59 05:59 05:59 Intake Total 120 1209 Balance 120 1209 - Time Spent With Patient Time Spent with Patient: greater than 35 minutes Time Spent with Patient: Greater than 35 minutes spent on this patients care, greater than 50% of time spent counseling, educating, and coordinating care regarding the above mentioned plan. - Physical Exam Constitutional: no apparent distress Eyes: other (right eye enucleated) Ears, Nose, Mouth, Throat: moist mucous membranes Cardiovascular: regular rate and rhythym Respiratory: no respiratory distress Gastrointestinal: normoactive bowel sounds Genitourinary: no bladder fullness Skin: warm Musculoskeletal: generalized weakness Neurologic: AAOx3, CN II-XII Intact Psychiatric: interacting appropriately ICD10 Worksheet Patient Problems: Problems Problem Status Onset Anemia Acute Dehydration Acute Renal insufficiency Acute Dyspnea Acute Hypoxia Acute Leukopenia Acute Stage IV breast cancer in female Acute
[2018-10-09] MEDS ORDERED: fentaNYL 50 MCG PATCH TD SCH (09:00)
[2018-10-09] MEDS: GABAPENTIN 300 MG CAP PO SCH ×3 (09:07→21:17)
[2018-10-09] MEDS: levETIRAcetam 500 MG TAB PO SCH ×2 (09:07→21:17)
[2018-10-09] MEDS: PANTOPRAZOLE SODIUM 40 MG TAB PO SCH ×2 (09:07→17:26)
[2018-10-09] MEDS: LETROZOLE 2.5 MG TAB PO SCH (09:08)
[2018-10-09] MEDS: Everolimus [Afinitor] 5 MG PO SCH (09:10)
--- NOTE | 2018-10-09 10:08 | NEUROPROG ---
Assessment: [id number] - Neurology Consult: - CC: Cancer in setting of metastatic cancer - HPI: 10/09/18: Pt with metastatic breast cancer stage IV to brain, bone, and liver and seizure disorder with report of some intermittent confusion concerning for focal seizures. She is followed by my partner, TOMER Fink, for seizures and is on Keppra 1000 mg bid. 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 Pt feels her intermittent confusion may be due to her pain medications. Her brain MRI wwo does show diffuse leptomeningeal enhancement suggesting leptomeningeal carcinomatosis so this could would be the most likely cause for her confusion. I would expect confusion to likely worsen due to her underlying metastatic cancer. I will get an EEG to assess for any active seizures. It would not be unreasonable to try increasing keppra 1000 mg bid to 1500 mg bid if she has further intermittent confusion spells to see if this improves her symptoms. - PMHx: metastatic breast cancer, GERD, osteoporosis, PNA, seizures - SHx: no tobacco FHx: cancer - ROS: Pt denied acute fever, total vision loss, active severe chest pain, respiratory failure, total body severe rash, total bowel/bladder incontinence, psychosis, active seizures, or active bleeding - O: VS reviewed General: Alert Eyes: Fundoscopic exam not able to visualize optic disks CV: Heart RRR, no murmur, no carotid bruit Lungs: Clear to auscultation bilaterally, no rhonchi or rales Neuro: - Mental: . Oriented x person/place/date . concentration appears normal . speech fluency/comprehension normal . memory appears normal . fund of knowledge appear intact - Cranial Nerves: . II: Pupil normal in left eye, VFFTC in left eye . III/IV/: EOMI in left eye, no nystagmus . V: facial sensation intact to LT . VII: face symmetric to eye closure and smile . VIII: hearing intact to conversation . IX/X: uvula raises symmetrically . XI: SCM 5/5 B/L strength . XII: tongue protrudes midline w/nl strength - Motor: . Tone: normal tone in all 4 extremity . Strength: no pronator drift, strength 5/5 throughout (B/L delt, bic, tri, hand pitting machine operator, hf/he, df/pf) - Reflexes: B/L bic 2/4 - Sensory: all 4 extremity intact to light touch - Coord: no significant ataxia - Gait: deferred - Labs: 10/09/18- Na 135 - Rads: 10/08/18- Brain MRI wwo: Diffuse osseous metastasis involving the calvarium, most prominent in the left parietal, frontal , and sphenoid bones, clivus, and C2 vertebra. Diffuse leptomeningeal enhancement suggesting leptomeningeal carcinomatosis, left greater than right, similar to previous study. No acute infarct, acute hemorrhage, hydrocephalus or herniation. No intra-axial enhancing metastasis. (I personally visualized the images on 10/09/18) - Assessment: 1. Metastatic Cancer 2. Intermittent confusion concerning for delirium from underlying metastatic cancer vs focal seizures - Plan: - Continue Keppra 1000 mg bid but reasonable to increase to 1500 mg bid if intermittent confusion spells continue - EEG - F/U with Loi Root after hospital discharge Objective: Vital Signs Temp Pulse Resp BP Pulse Ox 36.8 C 100 16 130/70 H 98 10/09/18 08:25 10/09/18 08:25 10/09/18 08:25 10/09/18 08:25 10/09/18 08:25 Laboratory Results 10/09/18 05:00 10/09/18 05:00 10/08/18 10/09/18 10/10/18 05:59 05:59 05:59 Intake Total 120 1209 Balance 120 1209 Allergies/Adverse Reactions: cimetidine [From Tagamet] Allergy (Verified 09/06/18 19:33) Other-Enter Comments zolpidem [From Ambien] Allergy (Verified 09/06/18 19:33) Other-Enter Comments
[2018-10-09] MEDS ORDERED: levETIRAcetam 500 MG TAB PO ONE (10:45)
--- NOTE | 2018-10-09 14:45 | GCON ---
[f rep st] CONSULTATION ONCOLOGY INITIAL VISIT PRIMARY ONCOLOGIST: Dr. Blanca Son REASON FOR VISIT: Evaluation and management of breast cancer and hypoplastic myelodysplasia. HISTORY OF PRESENT ILLNESS: The patient is a 63-year-old woman who was initially diagnosed with diamond [facility] cancer 2006, stage IIA. It was ER and AR positive, HER 2-. She received 2 cycles of Adriamycin C ytoxan, but had prolonged pancytopenia. Workup of this revealed that she had a hypoplastic myelodysp lasia. Initially was transfusion dependent and was treated with a course of ATG and cyclosporine. M ore recently, her white count has come in the low end of normal and platelet count has been low and a nemia a little bit worse. She is not currently on any specific therapy for the myelodysplasia. After the breast cancer diagnosis, she did not continue any more chemotherapy and went on adjuvant le trozole, which she completed 5 years of treatment. She has a history of a sebaceous carcinoma of the right eyelid and then developed recurrence March 2017. Brain MRI at that time showed leptomeninge al and calvarial metastases. PET-CT scan showed extensive osseous involvement. Biopsy of the suprac lavicular soft tissue mass that was abnormal on PET showed metastatic adenocarcinoma consistent with breast cancer primary. It is poorly differentiated, but still ERPR positive. Due to her underlying bone marrow disorder, she was started on Faslodex May 2017 and then palbociclib was added September 2017. The dose was reduced due to pancytopenia. She has not received a bone health agent due to den shane issues. A followup scan in March 2019 showed progressive disease, so she was started on letrozole. She had increasing pain in the right orbit due to the squamous cell carcinoma and underwent 6 weeks of radiat ion that started in June. Once that completed, she started everolimus probably in July. She was admitted yesterday. Records obtained from our outpatient chart, the inpatient chart and some what from the patient. According to the patient, she had a recent episode of what sounds like a stan l gastroenteritis with nausea, vomiting, and diarrhea. There are other members of the family who wer e also ill. Although other people bounce back faster, she was still having trouble with tolerating a ny oral intake. She was having worsening cramps and she was having more confusion. There were no to akua/clonic like episodes reported at home, but she does have a history of a seizure disorder. She ta kes Keppra, but she is not sure how well she has been able to take the medications when she was ill. There was concern that perhaps some of her symptoms were postictal situations and so she has been sc heduled for an EEG this afternoon. She is feeling better after hydration. She denies having any tro uble with the everolimus, which she has been on for the last 3 months. She was having more severe he adaches at home, but those are back to baseline as well. ALLERGIES: She has reported allergies to Tagamet and Ambien. HOME MEDICATIONS: Include: Ondansetron as needed, Haviland as needed, gabapentin, butalbital with aceta minophen, amitriptyline, omeprazole, levothyroxine, letrozole, propantheline bromide, promethazine wi th codeine, Keppra, Duragesic patch, and everolimus. CHRONIC ILLNESSES: 1. Recurrent metastatic breast cancer as per HPI. 2. Myelodysplastic syndrome per HPI. 3. 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 4. Seizure disorder. 5. GERD. 6. Osteoporosis. 7. Diastolic CHF. 8. Hypothyroidism. 9. 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 10. Osteopenia. 11. Transfusional iron overload treated with Exjade. 12. History of migraine headaches. 13. Restless legs syndrome. 14. History of left bundle branch block. SURGICAL HISTORY: 1. Includes right eye enucleation. 2. Cholecystectomy. 3. Hysterectomy. 4. She also had bilateral salpingo oophorectomy. This was June 1989 and it was performed for end ometriosis. 5. Left breast mastectomy. 6. 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 SOCIAL HISTORY: She is single, never . She does not smoke or drink. She lives with her brot her. OBSTETRICAL HISTORY: G0. FAMILY HISTORY: Father had prostate cancer, but of coronary artery disease. Maternal grandmoth er had breast cancer and a maternal aunt had leukemia at a young age. She has 1 brother alive and we ll. Another brother of myelodysplasia, also had multiple sclerosis and a sister of ALS. REVIEW OF SYSTEMS: A 10-point review of systems performed pertinent positives as per HPI, otherwise negative. PHYSICAL EXAM: VITAL SIGNS: Temperature is 37.1, pulse 102, blood pressure 115/70. GENERAL: She is awake and alert, in no distress. HEENT: Right eye is absent. Oral mucosa is unremarkable. CARDIAC: Regular without murmur. Lungs: Clear. ABDOMEN: Soft, nontender. MUSCULOSKELETAL: Nontender ISHAN ROLOGICAL: Appears to be grossly intact without any focal findings. LABS: On arrival white count is 3100, with hemoglobin 8.3[place] [address]. This is a l ittle bit lower than her baseline. When she was last seen in the office, her white count was 3200, h emoglobin 8.8, and platelet count of 83,000. BUN and creatinine when she arrived was 29 and 1.2, justus t has returned to normal with hydration. UA was concentrated with some slight white cells. Brain MRI shows diffuse osseous metastases and diffuse leptomeningeal enhancement, but this is simila r to previous MRI performed April 2018. No acute changes. Head CT showed no acute changes. Chest x-ray was clear. IMPRESSION: 1. Probable dehydration due to viral gastrointestinal illness. 2. History of seizure disorder. 3. Metastatic breast cancer with multiple bone metastases and leptomeningeal carcinomatosis. 4. History of right eyelid carcinoma with no evidence that this has recurred. 5. History of hypoplastic myelodysplastic syndrome. I agree that I think the most likely cause of her acute decline is the recent GI illness, which sound s viral since other members of the family were also sick. Because of her underlying medical problems , she was probably more susceptible to the virus and had a little more trouble recovering. We will s ee if her EEG shows anything worrisome. She is being followed by Neurology. As long she is eating a nd drinking, she can restart the letrozole and once she is stabilized, she can restart the everolimus , which she seems to be tolerating well. There is no urgent need for transfusions as her counts are about close to her baseline. If her hemoglobin fell below 7 g/dL, could transfuse her especially if she is symptomatic. I would n ot transfuse platelets unless it dropped below 30,000 or if she is bleeding. I will follow along yenni nely you while she is in the hospital. /[id number]/MODL
--- NOTE | 2018-10-09 17:26 | PDMN ---
Medical Necessity Medical necessity: [facility] M170 Gastroenteritis, A-2 days: 63 yo presents w/ confusion, N/V and diarrhea and LE cramping in setting of known breast ca w/ brain, bone and liver mets. Initially OBS for workup, likely viral gastroenteritis per oncology but pt becoming increasingly pancytopenic w/ WBC now at 1.85, H/H 7.1 and plt count 48. Change to IP status 10/09/18@1527 per MD order. Meets [facility] IP criteria for M170 w/ "Other condition, treatment, or monitoring requiring inpatient admission" as pt is high risk given hematology labwork and pt not back to baseline for discharge. Hx ca as above, MDS, seizure d/o, CHF
--- NOTE | 2018-10-09 19:20 | NEUROPROG ---
Assessment: EEG showed no seizure activity. I spoke with pharmacist and pt was not on full dose of Keppra 1000 mg bid so we increased her Keppra to that dose. Pt can f/u with her outpatient neurology provider, Yuri Root. Neurology will sign off but will be happy to get re-involved if needed. I do suspect her prognosis from the metastatic cancer is poor and she will likely have worsening mentation in the future. Objective: Vital Signs Temp Pulse Resp BP Pulse Ox 37.1 C 95 16 135/70 H 100 10/09/18 15:17 10/09/18 15:17 10/09/18 15:17 10/09/18 15:17 10/09/18 15:17 10/08/18 10/09/18 10/10/18 05:59 05:59 05:59 Intake Total 1000 Balance 1000 Allergies/Adverse Reactions: cimetidine [From Tagamet] Allergy (Verified 09/06/18 19:33) Other-Enter Comments zolpidem [From Ambien] Allergy (Verified 09/06/18 19:33) Other-Enter Comments
--- NOTE | 2018-10-09 20:17 | CPEEG ---
[f rep st] ELECTROENCEPHALOGRAM INPATIENT EEG. DATE OF STUDY: 10/09/2018 This is an EEG performed for 20 minutes. The posterior dominant rhythm is estimated at 7. This bill cates a slight generalized slowing. No seizure activity or epileptic discharges were noted. IMPRESSION: Overall slightly abnormal EEG due to generalized slowing. There was no seizure activity or epileptic discharges noted. /[id number]/MODL
[2018-10-09] MEDS: AMITRIPTYLINE HCL 25 MG TAB PO SCH (21:17)
[2018-10-09] MEDS: HYDROCODONE/APAP 5/325 TAB PO PRN (21:17)
[2018-10-10] MEDS: LEVOTHYROXINE 50 MCG TAB PO SCH (05:27)
[2018-10-10] MEDS: LETROZOLE 2.5 MG TAB PO SCH (08:33)
[2018-10-10] MEDS: Everolimus [Afinitor] 5 MG PO SCH (08:34)
[2018-10-10] MEDS: GABAPENTIN 300 MG CAP PO SCH ×2 (08:41→16:45)
[2018-10-10] MEDS: PANTOPRAZOLE SODIUM 40 MG TAB PO SCH (08:42)
[2018-10-10] MEDS: levETIRAcetam 500 MG TAB PO SCH (08:42)
[2018-10-10] MEDS ORDERED: fentaNYL 50 MCG PATCH TD SCH (09:00)
--- NOTE | 2018-10-10 10:57 | HOSPPROG ---
Hospitalist Progress Note Assessment/Plan: #Metabolic encephalopathy: nearly resolved -suspect due to acute GI illness -MRI brain with extensive osseous disease and leptomeningeal carcinomatosis ( similar to prior study) -EEG without seizure #Metastatic breast cancer -followed by Dr. Son #Seizure: slowing on EEG, no seizure. Keppra increased to 1000mg BID #Falls: lastthis weekend. Likely due to infection. PT/OT #JOSE GUADALUPE: resolved (BL 0.9) due to GI losses, viral infection went around the family #Hypomagnesium: repleted #Normocytic anemia: h/o MDS. Transfuse if Hb <7 #Hypothyroidism: LT4 #Sebaceous carcinoma right eye: enucleation, XRT #Compensated chronic diastolic HF: - monitor fluid status with IV fluids. #History of pneumonitis - chemo-related. Currently stable #Diet: regular #DVT ppx: SCDs DC today. See discharge summary Objective: Vital Signs Temp Pulse Resp BP Pulse Ox 36.7 C 93 16 126/76 H 96 10/10/18 07:32 10/10/18 07:32 10/10/18 07:32 10/10/18 07:32 10/10/18 07:32 Laboratory Results 10/10/18 05:03 10/09/18 10/10/18 10/11/18 05:59 05:59 05:59 Intake Total 1500 Balance 1500 ICD10 Worksheet Patient Problems: Problems Problem Status Onset Anemia Acute Dehydration Acute Renal insufficiency Acute Dyspnea Acute Hypoxia Acute Leukopenia Acute Stage IV breast cancer in female Acute
[2018-10-10] MEDS: EPOETIN ALFA 10,000 UNIT/ML VIAL SC SCH ×2 (13:25→15:12)
--- NOTE | 2018-10-10 13:44 | GDS ---
[f rep st] DISCHARGE SUMMARY DISCHARGE DIAGNOSES: 1. Metabolic encephalopathy. 2. Metastatic breast cancer. 3. History of seizures. 4. Gastrointestinal viral infection. 5. Falls. 6. Acute kidney injury. 7. Hypomagnesemia. 8. Normocytic anemia. 9. Hypothyroidism. 10. Sebaceous carcinoma right eye. 11. History of enucleation radiotherapy. 12. Compensated chronic diastolic heart failure. 13. History of pneumonitis. 14. Chronic hypoxemic respiratory failure, stable on 2 L. CONSULTATIONS: Neurology, Oncology. PROCEDURES: EEG: No evidence of seizures. HISTORY OF PRESENT ILLNESS: A pleasant 63-year-old female with metastatic breast cancer with mets to brain, bone and liver, MDS, GERD, who presents to the ER with her family with complaints of leg pain , cramping, and acute confusion. She did not have any fevers or chills. Has been having significant amount of vomiting over the last couple of days. She notes several family members with similar symp toms. There were concerns for seizure movements. HOSPITAL COURSE BY PROBLEM: 1. Acute encephalopathy: Suspect dehydration in setting of acute GI illness. MRI brain shows osseo us metastases and leptomeningeal carcinomatosis which is unchanged from prior. Neurology evaluated. EEG was slowed but without seizure. She is to resume Keppra at 1,000 mg twice daily. Encephalopath y is resolved. 2. Metastatic breast cancer, followed by Dr. Son. 3. History of seizures, given Keppra 1,000 mg twice daily. 4. Falls this past weekend, likely in the setting of dehydration. She is ambulating without issue. 5. JOSE GUADALUPE, resolved with IV fluids due to GI losses. 6. Hypomagnesium, repleted. 7. Normocytic anemia, due to myelodysplastic syndrome. Will be dosed Procrit before discharge. 8. Hypothyroidism, on levothyroxine. 9. History of sebaceous carcinoma right eye, enucleated XRT. 10. Compensated diastolic heart failure, stable. 11. History of pneumonitis. 12. Chronic hypoxemic respiratory failure, stable on 2 L. Patient is stable for discharge home. NEW MEDICATIONS: Keppra 1,000 mg twice daily. FOLLOWUP: With Dr. Son. PHYSICAL EXAMINATION: VITAL SIGNS: Today, temperature 36.7, blood pressure 105/70, heart rate in 90 to 100, respirations 16, 96% on 2 L. GENERAL: Much brighter. HEENT: Right eye enucleated. Moist mucous membranes. CV: Regular rate and rhythm. LUNGS: Clear. ABDOMEN: Soft. : No suprapubi c or flank tenderness. MUSCULOSKELETAL: 5/5 upper and lower extremity strength. NEURO: Two throug h 12 intact. PSYCH: Alert and oriented x3. TIME SPENT ON DISCHARGE: Greater than 30 minutes at bedside evaluating the patient and discussing ca se with Dr. Romero. /[id number]/MODL
--- NOTE | 2018-10-10 13:56 | SOAPPROG ---
SOAP Progress Note Assessment/Plan: E&M for breast cancer and MDS * Dehydration: This is thought to be related to the viral GI illness which she is finally recovered from. She is doing well there is no contraindication from oncology standpoint to going home. * Myelodysplastic syndrome, hypoplastic: Her counts have dropped a little bit but could be multifactorial including reactivation of the MDS, the worsening breast cancer, recent acute illness, and possibly due to therapy. She did not want a transfusion today but I think she might benefit from restarting erythropoietin therapy for the underlying MDS. She reports she had this several years ago and responded well to it. * Metastatic breast cancer: Now she is feeling back to normal she can restart both letrozole and the everolimus. She is to follow-up with Dr. Son. She should also f/u with xrt re: palliative radiation to left hip. Subjective: She is feeling better today. She is able to tolerate eating and the diarrhea is under good control. She has mild lack of stamina but does not want to have a transfusion today. She is hoping to go home and follow-up with Dr. Son. Objective: Vital Signs Temp Pulse Resp BP Pulse Ox 36.7 C 102 H 16 105/70 96 10/10/18 12:00 10/10/18 12:00 10/10/18 12:00 10/10/18 12:00 10/10/18 12:00 Laboratory Results 10/10/18 05:03 10/09/18 10/10/18 10/11/18 05:59 05:59 05:59 Intake Total 1500 Balance 1500 EEG results showed no seizure activity but some generalized slowing. Laboratory Tests 10/09/18 10/10/18 05:00 05:03 WBC 1.85 L 1.86 L Hgb 7.1 L 7.2 L Plt Count 48 L 54 L Physical Exam - Physical Exam General Appearance: no apparent distress Respiratory: lungs clear Cardiac/Chest: regular rate, rhythm Abdomen: non-tender, soft ICD10 Worksheet Patient Problems: Problems Problem Status Onset Anemia Acute Dehydration Acute Renal insufficiency Acute Dyspnea Acute Hypoxia Acute Leukopenia Acute Stage IV breast cancer in female Acute
[2018-10-10] MEDS ORDERED: EPOETIN ALFA 10,000 UNIT/ML VIAL SC SCH (14:00)
--- NOTE | 2018-10-10 14:26 | ASMTCMCOM ---
CM Note CM Note Notes: CM met with pt. Pt confirms that she would like to continue services with [facility]. PT has also recommended HC along with OT and RN. CM confirmed with [facility] that all services were set up which include PT, OT and RN. CM to follow. Plan: [facility] PT/OT/RN Date Signed: 10/10/2018 02:25 PM Electronically Signed By:Karen Calderon
[2018-10-10 15:11] VITALS: BP 110/65
--- NOTE | 2018-10-10 17:31 | PDIAF ---
- Diagnosis Diagnosis: fall Code Status: Full Code - Medication Management Discharge Medications: electronically signed and located in the Home Medication List. - Orders Services needed: Home Care, Physical Therapy, Occupational Therapy Home Care Face to Face: I certify that this patient was under my care and that I had the required [id number] encounter meeting the encounter requirements on the discharge day. My findings support the fact that the patient is homebound as defined in Home Care Face to Face Continued: CMS Chapter 7 Medicare Benefits Manual 30.1.1 , The condition of the patient is such that there exists a normal inability to leave home and consequently, leaving home would require a considerable and taxing effort. Isolation Type: Chemotherapy Isolation Diet Recommendation: no restrictions on diet Diet Texture: Regular Texture Diet - Follow Up Care Current Providers and Referrals: Pat Alvarado MD [Primary Care Provider] - As per Instructions
== END 2018-10-10 18:47 | disposition home or self-care (01) | DRG 391 ==
LOC: F1N 04:08 → OBSVTOIN 10-09 15:27
PROVIDERS: ADMIT Family Medicine; ATTEND Internal Medicine
DX: A08.4 Viral intestinal infection, unspecified (principal); G93.41 Metabolic encephalopathy; E86.0 Dehydration; N17.9 Acute kidney failure, unspecified; C79.51 Secondary malignant neoplasm of bone; C79.31 Secondary malignant neoplasm of brain; C78.7 Secondary malignant neoplasm of liver and intrahepatic bile duct; E83.42 Hypomagnesemia; J96.11 Chronic respiratory failure with hypoxia; H70.10 Chronic mastoiditis, unspecified ear; E03.9 Hypothyroidism, unspecified; K21.9 Gastro-esophageal reflux disease without esophagitis; Z85.3 Personal history of malignant neoplasm of breast; Z85.828 Personal history of other malignant neoplasm of skin; Z85.840 Personal history of malignant neoplasm of eye; Z87.01 Personal history of pneumonia (recurrent); Z99.81 Dependence on supplemental oxygen; Z91.81 History of falling
CPT/HCPCS: 82668-90; 97116-GP; 97161-GP; 97166-GO; A9585; G0378; J0885; J1642; J2405; J3475